=== PATIENT | female | born 1980 | race African-American/Black ===

== ENCOUNTER 2017-06-16 22:09 | Emergency (ER) | payer OTHER ==
[2017-06-16] MEDS ORDERED: Dexamethasone 10 MG/ML VIAL ONE (23:00)
== END 2017-06-16 23:25 | disposition home or self-care (01) ==
LOC: ERS 22:09
DX: J45.901 Unspecified asthma with (acute) exacerbation (principal); Z79.899 Other long term (current) drug therapy
CPT/HCPCS: 96372; J1100

== ENCOUNTER 2017-08-25 22:14 | Emergency (ER) | payer OTHER ==
[2017-08-25] MEDS ORDERED: methylPREDNISolone Sod Succ/PF 125 MG/2 ML VIAL ONE (23:01)
[2017-08-25] MEDS ORDERED: Magnesium Sulfate 2 GM/100 ML BAG ONE (23:01)
[2017-08-25] MEDS ORDERED: Sterile Water 10 ML ONE (23:02)
[2017-08-25 23:08] LABS: #Eosinphils 0.1 thou/uL (0.0-0.7); #Lymphocytes 1.1 thou/uL (1.20-3.40); #Monocytes 0.2 thou/uL (0.11-0.59); #Neutrophils 10.6 thou/uL (1.40-6.50); %Basophils 0.3 % (0.0-1.0); %Eosinophils 1.2 % (0.0-10.0); %Monocytes 1.8 % (0.0-10.0); Hematocrit 41.9 % (36.0-47.0); Mean Platelet Volume 7.9 fL (7.4-10.4); Red Blood Cell (RBC) Count 4.66 mill/uL (4.20-5.40); White Blood Cell (WBC) Count 12.1 thou/uL (4.8-10.8)
--- NOTE | 2017-08-25 23:20 | RAD ---
PORTABLE CHEST 08/25/17 PROVIDED CLINICAL HISTORY: Asthma exacerbation. FINDINGS: Comparison 10/11/16. The cardiac and mediastinal silhouette is within normal limits. Lungs appear clear. No pleural fluid or pneumothorax is evident. IMPRESSION: No evidence for an acute cardiopulmonary process. POS: [facility]
[2017-08-25 23:40] LABS: Anion Gap 16 mmol/L (10-20); BUN (Urea Nitrogen) 9 mg/dL (7.0-18.7); Calc. Creatinine Clearance 0 mL/min (70-130); Carbon Dioxide 23 mmol/L (22-29); Chloride 105 mmol/L (98-107); Estimated GFR-MDRD 81
== END 2017-08-26 02:18 | disposition home or self-care (01) ==
LOC: ERS 22:14
DX: J45.901 Unspecified asthma with (acute) exacerbation (principal)
CPT/HCPCS: 71010; 80048; 85025; 94640; 94660; 96365; 96366; 96375; A4216; J2930; J3475; J7620

== ENCOUNTER 2017-11-09 09:40 | Outpatient (CLI) | payer OTHER ==
--- NOTE | 2017-11-09 11:47 | RAD ---
PA AND LATERAL CHEST: History: Dyspnea. Comparison: 08-25-17 FINDINGS: Heart size and mediastinum are within normal limits. The lungs are clear of infiltrates. There are no significant bony findings. IMPRESSION: No active intrathoracic disease. Stable exam. POS: [facility]
== END 2017-11-09 09:41 | disposition home or self-care (01) ==
LOC: RAD 09:40
PROVIDERS: ATTEND Internal Medicine
DX: R06.00 Dyspnea, unspecified (principal)
CPT/HCPCS: 71046

== ENCOUNTER 2017-12-07 04:54 | Emergency (ER) | payer OTHER ==
[2017-12-07] MEDS ORDERED: Albuterol Sulfate 2.5 mg/3 ml Neb ONE (05:07)
[2017-12-07] MEDS ORDERED: Dexamethasone 10 MG/ML VIAL ONE (05:17)
[2017-12-07 05:18] LABS: pH, Arterial 7.45 (7.35-7.45)
[2017-12-07 05:19] LABS: Actual Bicarbonate (HCO3a) 23.9 mEq/L (22-26); Base Excess (BEa) 0.4 mEq/L (0 (+/-) 2.5); CO2 Tension 35.3 mmHg (35.0-45.0); Hemoglobin (Hb) 13.3 g/dL (12.0-16.0); O2 Tension (PaO2) 98.5 mmHg (80.0-100.0)
[2017-12-07 05:20] LABS: ALV-art Gradient 55.615 (0-20); Analyzer IN Cardio ER; Calcium, Ionized 1.2 mmol/L (1.12-1.30); Puncture Site RRA
[2017-12-07] MEDS ORDERED: Magnesium 2 GM/NS 0.9% 100 ML 2 GM in Premix Bag 1 BAG IVPB SCH (05:30)
[2017-12-07 05:37] LABS: #Eosinphils 1.1 thou/uL (0.0-0.7); #Lymphocytes 3.2 thou/uL (1.20-3.40); #Neutrophils 10.2 thou/uL (1.40-6.50); %Eosinophils 7.3 % (0.0-10.0); %Lymphocytes 20.3 % (21.0-51.0); %Monocytes 6.6 % (0.0-10.0); %Neutrophils 65.8 % (42.0-75.0); Hemoglobin 13.3 g/dL (12.0-16.0); Mean Corpuscular HGB CONC 32.2 g/dL (32.0-36.0); Mean Corpuscular Hemoglobin 28.5 pg (27.0-31.0); Mean Corpuscular Volume 88.4 fl (81.0-99.0); Mean Platelet Volume 7.4 fL (7.4-10.4); Platelet Count 263 thou/uL (130-400); RBC Distribution Width 13.7 % (11.5-14.5); Red Blood Cell (RBC) Count 4.66 mill/uL (4.20-5.40); White Blood Cell (WBC) Count 15.5 thou/uL (4.8-10.8)
[2017-12-07 05:47] LABS: Anion Gap 10 mmol/L (10-20); BUN (Urea Nitrogen) 10 mg/dL (7.0-18.7); Calc. Creatinine Clearance 0 mL/min (70-130); Calcium 8.9 mg/dL (7.8-10.44); Carbon Dioxide 28 mmol/L (22-29); Chloride 106 mmol/L (98-107); Estimated GFR-MDRD 81; Glucose 88 mg/dL (70-105); Potassium 3.7 mmol/L (3.5-5.1); Sodium 140 mmol/L (136-145)
--- NOTE | 2017-12-07 08:04 | RAD ---
CHEST ONE VIEW: Comparison: 08-25-17, 11-09-17 History: Asthma. FINDINGS: Normal cardiac silhouette. Lungs and pleural spaces are clear. No pneumothorax. No acute osseous abno rmalities. Posterior old right 5th rib fracture is noted. IMPRESSION: No acute process. POS: [facility]
--- NOTE | 2018-01-06 14:58 | EKG ---
Test Reason : SOB Blood Pressure : / mmHG Vent. Rate : 082 BPM Atrial Rate : 082 BPM P-R Int : 160 ms QRS Dur : 076 ms QT Int : 374 ms P-R-T Axes : 055 -13 029 degrees QTc Int : 436 ms Normal sinus rhythm Normal ECG Confirmed by ANSON REDMAN, MEKA ([id number]), editor greeting card WALESKA WILCOX ([id number]) on 01/06/2018 2:57:33 PM Referred By: ANTONY GRIGGS Confirmed By:MEAK GRIGGS MD
== END 2017-12-07 07:12 | disposition home or self-care (01) ==
LOC: ERS 04:54
DX: J45.901 Unspecified asthma with (acute) exacerbation (principal); Z79.899 Other long term (current) drug therapy
CPT/HCPCS: 36415; 71045; 80048; 82805; 85025; 93005; 94760; 96361; 96365; 96375; J1100; J3475; J7611; J7620

== ENCOUNTER 2018-01-24 00:54 | Emergency (ER) | payer OTHER | END 2018-01-24 01:48 | disposition left against medical advice (07) | LOC: ERS 00:54 | DX: Z53.21 Procedure and treatment not carried out due to patient leaving prior to being seen by health care provider (principal) | CPT/HCPCS: J7620 ==

== ENCOUNTER 2018-04-06 02:55 | Emergency (ER) | payer OTHER ==
[2018-04-06 04:31] LABS: #Lymphocytes 2.9 thou/uL (1.20-3.40); #Monocytes 0.6 thou/uL (0.11-0.59); #Neutrophils 7.6 thou/uL (1.40-6.50); %Basophils 0.2 % (0.0-1.0); %Eosinophils 0.1 % (0.0-10.0); %Lymphocytes 26.1 % (21.0-51.0); %Monocytes 5.1 % (0.0-10.0); %Neutrophils 68.6 % (42.0-75.0); Hemoglobin 13.8 g/dL (12.0-16.0); Mean Corpuscular HGB CONC 31.9 g/dL (32.0-36.0); Mean Corpuscular Hemoglobin 28.6 pg (27.0-31.0); Mean Corpuscular Volume 89.7 fL (78.0-98.0); Mean Platelet Volume 7.7 fL (7.4-10.4); Platelet Count 269 thou/uL (130-400); RBC Distribution Width 13.6 % (11.5-14.5); Red Blood Cell (RBC) Count 4.81 mill/uL (4.20-5.40); White Blood Cell (WBC) Count 11.1 thou/uL (4.8-10.8)
[2018-04-06 04:35] LABS: BHCG - Serum Negative (NEGATIVE); Pregs Control Background? CLEAR/WHITE (CLR/WHITE); Pregs Control Bar Appear? YES (CONTROL BAR)
[2018-04-06 04:49] LABS: ALT (SGPT) 18 U/L (8-55); AST (SGOT) 13 U/L (5-34); Albumin 3.7 g/dL (3.5-5.0); Alkaline Phosphatase 118 U/L (40-150); Anion Gap 12 mmol/L (10-20); BUN (Urea Nitrogen) 8 mg/dL (7.0-18.7); Bilirubin, Total 0.3 mg/dL (0.2-1.2); Calc. Creatinine Clearance 0 mL/min (70-130); Calcium 9.2 mg/dL (7.8-10.44); Carbon Dioxide 29 mmol/L (22-29); Chloride 101 mmol/L (98-107); Estimated GFR-MDRD 89; Globulin 2.9 g/dL (2.4-3.5); Glucose 98 mg/dL (70-105); Potassium 3.3 mmol/L (3.5-5.1); Protein, Total 6.6 g/dL (6.0-8.3); Sodium 139 mmol/L (136-145)
[2018-04-06] MEDS ORDERED: Ketorolac Tromethamine 60 MG/2 ML VIAL ONE (05:48)
[2018-04-06] MEDS ORDERED: predniSONE 20 MG TAB ONE (06:39)
--- NOTE | 2018-04-06 08:38 | RAD ---
CHEST TWO VIEWS: 04/06/2018 PROVIDED CLINICAL HISTORY: Cough. COMPARISON: 12/07/2017 FINDINGS: The cardiac and mediastinal silhouette are within normal limits. The lungs appear clear. There is n o pleural fluid or pneumothorax apparent. IMPRESSION: No evidence for an acute cardiopulmonary process. POS: [facility]
== END 2018-04-06 06:45 | disposition home or self-care (01) ==
LOC: ERS 02:55
DX: J20.9 Acute bronchitis, unspecified (principal); R10.9 Unspecified abdominal pain; J45.909 Unspecified asthma, uncomplicated; Z79.899 Other long term (current) drug therapy
CPT/HCPCS: 36415; 71046; 80053; 84703; 85025; 96372; J1885; J7506; J7620

== ENCOUNTER 2018-04-30 19:07 | Emergency (ER) | payer OTHER ==
--- NOTE | 2018-04-30 22:54 | RAD ---
PA AND LATERAL CHEST X-RAY: 04/30/2018 HISTORY: Cough for greater than one month. COMPARISON: 04/06/2018 FINDINGS: The cardiac silhouette and pulmonary vasculature are within normal limits. The lungs remain clear. There has been no interval change from the prior study. IMPRESSION: No acute cardiopulmonary process. POS: [facility]
== END 2018-04-30 22:45 | disposition home or self-care (01) ==
LOC: ERS 19:07
DX: J45.909 Unspecified asthma, uncomplicated (principal); J06.9 Acute upper respiratory infection, unspecified; Z79.899 Other long term (current) drug therapy
CPT/HCPCS: 71046

== ENCOUNTER 2018-05-15 20:26 | Inpatient (IN) | payer OTHER ==
[2018-05-15] MEDS ORDERED: Albuterol Sulfate 2.5 mg/3 ml Neb ONE (20:38)
[2018-05-15] MEDS ORDERED: Albuterol Sulfate 2.5 mg/0.5 ml Neb ONE (20:39)
--- NOTE | 2018-05-15 21:07 | RAD ---
SINGLE VIEW CHEST: HISTORY: Asthma. Shortness of breath. COMPARISON: 12/07/2017 FINDINGS: Single view of the chest show normal sized cardiomediastinal silhouette. There is no evidence of cons olidation, mass, or pleural effusion. The bones are unremarkable. IMPRESSION: No evidence of acute cardiopulmonary disease. POS: [facility]
[2018-05-15 21:11] LABS: #Basophils 0.1 thou/uL (0.0-0.2); #Lymphocytes 5.4 thou/uL (1.20-3.40); #Monocytes 0.6 thou/uL (0.11-0.59); #Neutrophils 10.7 thou/uL (1.40-6.50); %Basophils 0.5 % (0.0-1.0); %Eosinophils 0.1 % (0.0-10.0); %Lymphocytes 32.3 % (21.0-51.0); %Monocytes 3.6 % (0.0-10.0); %Neutrophils 63.5 % (42.0-75.0); Hemoglobin 13.9 g/dL (12.0-16.0); Mean Corpuscular HGB CONC 32.8 g/dL (32.0-36.0); Mean Corpuscular Hemoglobin 29.1 pg (27.0-31.0); Mean Corpuscular Volume 88.8 fL (78.0-98.0); Platelet Count 290 thou/uL (130-400); RBC Distribution Width 13.2 % (11.5-14.5); Red Blood Cell (RBC) Count 4.78 mill/uL (4.20-5.40); White Blood Cell (WBC) Count 16.8 thou/uL (4.8-10.8)
[2018-05-15 21:20] LABS: BHCG - Serum Negative (NEGATIVE); Pregs Control Background? CLEAR/WHITE (CLR/WHITE); Pregs Control Bar Appear? YES (CONTROL BAR)
[2018-05-15 21:32] LABS: ALT (SGPT) 15 U/L (8-55); AST (SGOT) 15 U/L (5-34); Albumin 3.7 g/dL (3.5-5.0); Alkaline Phosphatase 109 U/L (40-150); Anion Gap 13 mmol/L (10-20); BUN (Urea Nitrogen) 12 mg/dL (7.0-18.7); Bilirubin, Total 0.3 mg/dL (0.2-1.2); Calc. Creatinine Clearance 0 mL/min (70-130); Calcium 9.7 mg/dL (7.8-10.44); Carbon Dioxide 23 mmol/L (22-29); Chloride 105 mmol/L (98-107); Estimated GFR-MDRD 81; Globulin 3.2 g/dL (2.4-3.5); Glucose 130 mg/dL (70-105); Magnesium 2.9 mg/dL (1.6-2.6); Potassium 3.4 mmol/L (3.5-5.1); Protein, Total 6.9 g/dL (6.0-8.3); Sodium 138 mmol/L (136-145)
--- NOTE | 2018-05-15 23:34 | PDOC.FPRHP ---
- History of Present Illness Chief Complaint: Cough History of Present Illness: Ms. Holman presents for cough, SOB, wheezing. She reports a productive cough for the past 2 months. She has not increased use of home asthma medications. Today she did her breathing treatments which didn't work so she called EMS. Received 3 duonebs, 2g magnesium, epi, and 125 solumedrol in EMS. Denies fever/chills. Reports chest tightness, wheezing. She is feeling better. Sindhu has history of requiring intubation twice in past for asthma exacerbations. She was seen in clinic today for "seizures", desiring a referral. She says that when she starts coughing, she starts "shaking" which lasts 5-10 min and has been occurring 1-2x per day for the past month. Shaking will spontaneously resolve. No incontinence or post ictal state. - Allergies/Adverse Reactions Allergies Allergy/AdvReac Type Severity Reaction Status Date / Time adhesive Allergy Verified 05/16/18 00:44 guaifenesin [From Robitussin] Allergy Rash Verified 05/16/18 00:44 - Home Medications Medication Instructions Recorded Confirmed Type Montelukast Sodium [Singulair] 10 mg PO BID 01/21/16 05/16/18 History ALButerol Sulfate [Ventolin Neb] 3 ml NEB Q4HR PRN 30 Days 07/15/16 05/16/18 Rx Budesonide-Formoterol [Symbicort 2 puff INH BID-RT #1 aer 07/15/16 10/11/16 Rx 160-4.5] Albuterol Sulfate [Proair HFA] 2 puff INH BID PRN 07/23/16 05/16/18 History Ipratropium/Albuterol Sulfate 3 ml NEB [id number] PRN 07/23/16 05/16/18 History [DuoNeb] - History PMHx:eosinophilic asthma PSHx: Tubal ligation, sinus surgery FHx: HTN, arthritis, mother-asthma Social: Lives with 2 kids, ages 11 & 14. Does not work. Denies tobacco, alcohol , drug use. - Review of Systems General: denies: fever/chills, weight/appetite/sleep changes Eyes: denies: eye pain, vision changes ENT: reports: nasal congestion, rhinorrhea Respiratory: reports: cough, shortness of breath, other (wheezing, chest tightness) Cardiovascular: denies: chest pain, palpitation Gastrointestinal: denies: nausea, vomiting, diarrhea, constipation, abdominal pain Genitourinary: denies: incontinence, dysuria Skin: denies: rashes, lesions Musculoskeletal: denies: pain, swelling Neurological: reports: seizure. denies: syncope Psychological: denies: anxiety, depression - Vital signs BP: 146/76 HR: 100 RR: 20 Tmax: afebrile Pox: 100%% on bipap 50% - Physical Exam -Constitutional: sitting up in bed comfortably on bipap HEENT: normocephalic and atraumatic, PERRLA, EOMI, grossly normal vision, grossly normal hearing, normal nasal mucosa, MMM, oropharynx clear Neck: supple, trachea midline Heart: normal S1/S2, other (tachycardia) Lungs: other (diffuse wheezing) Abdomen: soft, non-tender, bowel sounds present Musculoskeletal: normal structure, ROM grossly normal Neurological: CN II-XII intact Skin: no rash/lesions, good turgor, capillary refill <2 seconds Heme/Lymphatic: no unusual bruising or bleeding, no LAD Psychiatric: normal mood and affect FMR H&P: Results - Labs Result Diagrams: 05/16/18 05:09 05/16/18 05:09 Lab results: WBC 16.8 thou/uL (4.8-10.8) H 05/15/18 20:58 Hgb 13.9 g/dL (12.0-16.0) 05/15/18 20:58 Hct 42.4 % (36.0-47.0) 05/15/18 20:58 MCV 88.8 fL (78.0-98.0) 05/15/18 20:58 Plt Count 290 thou/uL (130-400) 05/15/18 20:58 Neutrophils % 63.5 % (42.0-75.0) 05/15/18 20:58 Sodium 138 mmol/L (136-145) 05/15/18 20:58 Potassium 3.4 mmol/L (3.5-5.1) L 05/15/18 20:58 Chloride 105 mmol/L (98-107) 05/15/18 20:58 Carbon Dioxide 23 mmol/L (22-29) 05/15/18 20:58 BUN 12 mg/dL (7.0-18.7) 05/15/18 20:58 Creatinine 0.94 mg/dL (0.6-1.1) 05/15/18 20:58 Glucose 130 mg/dL (70-105) H 05/15/18 20:58 Calcium 9.7 mg/dL (7.8-10.44) 05/15/18 20:58 Total Bilirubin 0.3 mg/dL (0.2-1.2) 05/15/18 20:58 AST 15 U/L (5-34) 05/15/18 20:58 ALT 15 U/L (8-55) 05/15/18 20:58 Alkaline Phosphatase 109 U/L (40-150) 05/15/18 20:58 Serum Total Protein 6.9 g/dL (6.0-8.3) 05/15/18 20:58 Albumin 3.7 g/dL (3.5-5.0) 05/15/18 20:58 FMR H&P: A/P - Problem List (1) Acute respiratory failure Current Visit: No Status: Acute Code(s): J96.00 - ACUTE RESPIRATORY FAILURE , UNSP W HYPOXIA OR HYPERCAPNIA (2) Asthma exacerbation Current Visit: No Status: Acute Code(s): J45.901 - UNSPECIFIED ASTHMA WITH ( ACUTE) EXACERBATION (3) Hypokalemia Current Visit: No Status: Acute Code(s): E87.6 - HYPOKALEMIA (4) Leucocytosis Current Visit: No Status: Acute Code(s): D72.829 - ELEVATED WHITE BLOOD CELL COUNT, UNSPECIFIED Comment: likley due to steroid use - Plan 38 year old female with PMH of asthma presents with CC of SOB, found to be in acute hypoxic respiratory failure 2/2 asthma exacerbation Acute hypoxic respiratory failure 2/2 asthma exacerbation - pt has history of eosinophilic asthma, has been intubated twice for exacerbations - managed with daily dulera, singulair, duonebs as well as monthly allergy shots - has received solumedrol 125mg, epinephrine, 2 g magnesium, duonebs prior to admission - CXR showed no acute cardiopulmonary process - Prednisone 60mg qd - satting well with bipap with not current concern for worsening respiratory status. wean as tolerated to keep sats 93-95% - duonebs ben q2h - monitor respiratory status Leukocytosis - WBC 16.8 - steroid use and stress reaction likely contributory - monitor CBC Hypokalemia - K+ 3.4 on admission - patient has received albuterol - will not replace at this time - monitor am labs Diet: regular Ppx: SCDs Dispo: admit to IMCU FMR H&P: Upper Level - Pertinent history 38F with history of severe eosinophilic asthma who has been intubated twice previously p/w SOB. She is currently undergoing monoclonal antibody injections ( Fasenra) qmonthly for her asthma. She was evaluated at [facility] clinic today for possible seizure activity. No respiratory distress at that time. She then developed wheezing and SOB at home. No response to nebulizer so she called EMS. She received Duonebs x 3, 0.3mg of Epi, 125mg of Solumedrol, and 2G of magnesium in route. She was put on CPAP in ER and has slowly improved since that time. - Pertinent findings Vitals: 136/88 mmHg 111 bpm 23 breaths/m 100% on CPAP Gen: A&Ox3 CV: elevated rate; regular rhythym Pulm: diffuse expiratory wheezes; minimal air movement in all lung beltran Extremities: no lower extremity edema Skin: no rashes or lesions WBC: 16.8 K: 3.4 CXR: no acute cardiopulmonary process - Plan Date/Time: 05/15/18 0090 1. Acute hypoxic respiratory failure 2/2 asthma exacerbation -improved with medications in route; stable on CPAP; answering in full sentences ; no respiratory distress at time of my evaluation -Duonebs q2h with oral prednisone 60mg daily -continue CPAP overnight and attempt to wean in the morning -no clear trigger for her exacerbation 2. Hypermagnesemia -2/2 to medications given en route -monitor and treat accordingly I, Aguilar Pizano, have evaluated this patient and agree with findings/plan as outlined by trestle mainternance laborer resident. Pertinent changes/additions are listed here. Attending Addendum - Attending Addendum Date/Time: 05/15/18 5440 I personally evaluated the patient and discussed the management with Dr. Coreas and Dr. Pizano I agree with the History, Examination, Assessment and Plan documented above with any addition or exceptions noted below. 38 yo female with hx of hypereosinophilic severe asthma presents for acute exacerbation. s/p steroids and magnesium. Currently on BiPAP with improved symptoms. Will continue for now. Schedule breathing treatments q1 to 2 hours. Space as tolerated. Unsure trigger at this time. Possible allergies vs URI. Continue all allergy meds. Hold antibx at this time. Elian
[2018-05-15] MEDS ORDERED: Ondansetron ODT 4 MG TAB PO PRN (23:35)
[2018-05-15 23:42] VITALS: BMI 34.2
[2018-05-16 05:42] LABS: #Lymphocytes 0.7 thou/uL (1.20-3.40); #Neutrophils 11.3 thou/uL (1.40-6.50); %Eosinophils 0.1 % (0.0-10.0); %Lymphocytes 5.8 % (21.0-51.0); %Monocytes 0.3 % (0.0-10.0); %Neutrophils 93.7 % (42.0-75.0); Hemoglobin 13.1 g/dL (12.0-16.0); Mean Corpuscular HGB CONC 32.2 g/dL (32.0-36.0); Mean Corpuscular Hemoglobin 28.9 pg (27.0-31.0); Mean Corpuscular Volume 89.7 fL (78.0-98.0); Mean Platelet Volume 8.2 fL (7.4-10.4); Platelet Count 268 thou/uL (130-400); RBC Distribution Width 13.2 % (11.5-14.5); Red Blood Cell (RBC) Count 4.53 mill/uL (4.20-5.40)
[2018-05-16 05:53] LABS: Anion Gap 12 mmol/L (10-20); BUN (Urea Nitrogen) 11 mg/dL (7.0-18.7); Calc. Creatinine Clearance 111 mL/min (70-130); Carbon Dioxide 23 mmol/L (22-29); Chloride 108 mmol/L (98-107); Estimated GFR-MDRD 83; Glucose 207 mg/dL (70-105); Potassium 3.9 mmol/L (3.5-5.1); Sodium 139 mmol/L (136-145)
[2018-05-16] MEDS ORDERED: Benzonatate 100 MG CAP PO PRN (10:31)
[2018-05-16] MEDS: predniSONE 20 MG TAB PO SCH (10:33)
[2018-05-16] MEDS: Acetaminophen 325 MG TAB PO PRN ×2 (10:33→22:32)
[2018-05-16] MEDS: Montelukast Sodium 10 mg Tablet PO SCH ×2 (12:55→21:14)
[2018-05-16] MEDS ORDERED: Ketorolac Tromethamine 30 MG/ML VIAL IVP SCH (15:15)
[2018-05-16] MEDS ORDERED: Mometasone/Formoterol 120 PUFF INHALER INH SCH (18:30)
--- NOTE | 2018-05-16 18:31 | CON ---
DATE OF CONSULTATION: 05/16/2018 Ms. Holman is a 38-year-old female with a history of asthma, she says since she was a child. She actually says she has been intubated twice in the past. Certainly had multiple ER visits here. It looks like she has 10 to 12 a year going back to 2013. She presented with a typical asthma exacerbation, says she is much better. She was actually in the emergency room on 05/01, with a complaint of a cough. She did not leave me with the impression that she sees doctors in offices frequently. PAST MEDICAL HISTORY: Remarkable for seen by Dr. Dorman in October for asthma. His notes state that she has suspected vocal cord dysfunction as well. He noted that as soon as she was intubated, there was no prolonged expiratory phase or obstructive pattern on her ventilator profile. Past medical history remarkable for possible sleep apnea. History of a tubal ligation and sinus surgery in the past. SOCIAL HISTORY: She is nonsmoker, nondrinker. FAMILY HISTORY: Negative for lung disease in early age. REVIEW OF SYSTEMS: 10 point review of systems completed; otherwise negative. She denies fever, chills, sweats, purulent sputum. She did report a cough prior to admission. PHYSICAL EXAMINATION: GENERAL: She is in no distress. VITAL SIGNS: She is afebrile, heart rate is 98, respiratory rate is 14, oximetry is 100% on room air, blood pressure 122/74. HEENT: Pupils are equal. Sclerae is anicteric. NECK: Supple, no lymphadenopathy. LUNGS: Completely clear. HEART: Regular rhythm. S1 and S2 are normal. ABDOMEN: Soft and nontender. EXTREMITIES: Without clubbing, cyanosis or edema. IMPRESSION: Asthma versus vocal cord dysfunction/conversion disorder. She is clinically stable. She can move out of the Intermediate Care Unit. This is a 50 minute consult, with greater than 50% of the time spent in unit on coordination of care. KURTIS
[2018-05-16] MEDS: Fluticasone Propionate HFA 220 MCG AER INH SCH (18:47)
[2018-05-17 05:31] LABS: #Lymphocytes 1.9 thou/uL (1.20-3.40); #Neutrophils 11.6 thou/uL (1.40-6.50); %Basophils 0.1 % (0.0-1.0); %Eosinophils 0.1 % (0.0-10.0); %Lymphocytes 13.3 % (21.0-51.0); %Monocytes 6.9 % (0.0-10.0); %Neutrophils 79.7 % (42.0-75.0); Mean Corpuscular Hemoglobin 29.5 pg (27.0-31.0); Mean Corpuscular Volume 89.1 fL (78.0-98.0); Mean Platelet Volume 7.8 fL (7.4-10.4); Platelet Count 243 thou/uL (130-400); RBC Distribution Width 13.4 % (11.5-14.5); Red Blood Cell (RBC) Count 4.07 mill/uL (4.20-5.40); White Blood Cell (WBC) Count 14.5 thou/uL (4.8-10.8)
[2018-05-17 05:49] LABS: Anion Gap 12 mmol/L (10-20); BUN (Urea Nitrogen) 10 mg/dL (7.0-18.7); Calc. Creatinine Clearance 140 mL/min (70-130); Calcium 8.7 mg/dL (7.8-10.44); Carbon Dioxide 21 mmol/L (22-29); Chloride 111 mmol/L (98-107); Estimated GFR-MDRD Greater than 90; Glucose 104 mg/dL (70-105); Potassium 3.2 mmol/L (3.5-5.1); Sodium 141 mmol/L (136-145)
[2018-05-17] MEDS: Fluticasone Propionate HFA 220 MCG AER INH SCH (08:00)
--- NOTE | 2018-05-17 08:13 | PDOC.FM ---
- Subjective Subjective: Pt reports feeling better. Wondering about going home. Says cough is still about the same and hasn't had improvement. Denies any SOB. Denies any fever or chills. Denies any acute events overnight. - Objective MAR Reviewed: Yes Vital Signs & Weight: Vital Signs (12 hours) Temp Pulse Resp BP Pulse Ox 05/17/18 08:05 86 16 98 05/17/18 07:49 98.4 F 75 18 98 05/17/18 03:00 98.4 F 75 18 137/85 100 05/16/18 22:00 98.3 F 90 18 138/82 100 05/16/18 21:27 96 16 100 Weight Weight 84.867 kg I&O: 05/16/18 05/17/18 05/18/18 06:59 06:59 06:59 Intake Total 500 1220 Output Total 450 650 Balance 50 570 Result Diagrams: 05/17/18 05:07 05/17/18 05:07 Radiology Reviewed by me: Yes (No acute cardiopulm process) <Sukhjinder Pettit - Last Filed: 05/17/18 08:11> - Objective Vital Signs & Weight: Vital Signs (12 hours) Temp Pulse Resp BP Pulse Ox 05/17/18 08:57 98.0 F 82 20 100/57 L 99 05/17/18 08:05 86 16 98 05/17/18 07:49 98.4 F 75 18 98 05/17/18 03:00 98.4 F 75 18 137/85 100 Weight Weight 84.867 kg I&O: 05/16/18 05/17/18 05/18/18 06:59 06:59 06:59 Intake Total 500 1220 Output Total 450 650 Balance 50 570 Result Diagrams: 05/17/18 05:07 05/17/18 05:07 <Dara Jacobsen - Last Filed: 05/17/18 11:03> Phys Exam - Physical Examination Constitutional: NAD HEENT: PERRLA, moist MMs possible canida infection on tongue Neck: no nodes, supple, full ROM Mild wheezing noted in upper lobes. Lung sounds improved from yesterday Some mild rales noted Cardiovascular: RRR, no significant murmur, no rub Gastrointestinal: soft, non-tender, no distention, positive bowel sounds Musculoskeletal: pulses present Neurological: non-focal, moves all 4 limbs Psychiatric: normal affect, A&O x 3 Skin: no rash, normal turgor, cap refill <2 seconds <Sukhjinder Pettit - Last Filed: 05/17/18 08:11> Dx/Plan (1) Acute respiratory failure Code(s): J96.00 - ACUTE RESPIRATORY FAILURE, UNSP W HYPOXIA OR HYPERCAPNIA Status: Resolved (2) Asthma exacerbation Code(s): J45.901 - UNSPECIFIED ASTHMA WITH (ACUTE) EXACERBATION Status: Acute Qualifiers: Asthma severity: severe Asthma persistence: persistent Qualified Code(s) : J45.51 - Severe persistent asthma with (acute) exacerbation (3) Hypokalemia Code(s): E87.6 - HYPOKALEMIA Status: Acute (4) Leucocytosis Code(s): D72.829 - ELEVATED WHITE BLOOD CELL COUNT, UNSPECIFIED Status: Acute (5) Oral candidiasis Code(s): B37.0 - CANDIDAL STOMATITIS Status: Acute - Plan Plan: Acute hypoxic respiratory failure(Resolved) 2/2 asthma exacerbation - pt has history of eosinophilic asthma, has been intubated twice for exacerbations - managed with daily dulera, singulair, duonebs as well as monthly allergy shots - recieved solumedrol 125mg, epinephrine, 2 g magnesium, duonebs prior to admission. Was placed on BIPAP and by morning after admission was satting 100% on RA - CXR showed no acute cardiopulmonary process - Prednisone 60mg qd, will give burst for 5 days. Day 2. - duonebs ben q4h - Pt doing much better. Satting 100% on RA. Lung sounds much improved and air movement better. Possibly home today. -Started on home steroid inhaler. Continued singulair. Also started claritin allergy pill -Still having chronic cough- Tessalon and Dextromorphan at this time. May need further follow up outpatient Leukocytosis - WBC 16.8-->14. - steroid use and stress reaction likely contributory - monitor CBC Hypokalemia - K+ 3.2 today. Will replace and trend. - patient has received albuterol - monitor am labs <Sukhjinder Pettit - Last Filed: 05/17/18 08:11> Attending Addendum - Attending Addendum Date/Time: 05/17/18 1102 I personally evaluated the patient and discussed the management with Dr. Pettit I agree with the History, Examination, Assessment and Plan documented above with any addition or exceptions noted below- Patient sleeping comfortable. Still has cough but SOB improved. Afebrile VSS. A/P: 1) Asthma exacerbation- improved; d/c home today with po steroids, inhalers. <Dara Jacobsen - Last Filed: 05/17/18 11:03>
[2018-05-17] MEDS ORDERED: Potassium Chloride 20 MEQ TAB PO SCH (08:15)
[2018-05-17 08:59] VITALS: BP 100/57; TEMP 98
[2018-05-17] MEDS ORDERED: Loratadine 10 MG TAB PO SCH (09:00)
[2018-05-17] MEDS ORDERED: Nystatin 500,000 UNITS/5 ML UDCUP SSW SCH (09:00)
[2018-05-17] MEDS: predniSONE 20 MG TAB PO SCH (09:10)
[2018-05-17] MEDS: Montelukast Sodium 10 mg Tablet PO SCH (09:10)
[2018-05-17] MEDS ORDERED: Dextromethorphan Polistirex 30 MG/5 ML (89 ML BOTTLE) PO SCH (12:00)
[2018-05-17 12:54] LABS: Free T4 (Free Thyroxine) 0.64 ng/dL (0.70-1.48)
[2018-05-17] MEDS ORDERED: Mometasone 100 MCG HFA INHALER INH SCH (18:30)
== END 2018-05-17 12:39 | disposition home or self-care (01) | DRG 189 ==
LOC: ERS 20:26 → IMCU/EMU 21:28 → 3SE 05-16 22:05
PROVIDERS: ADMIT Student in an Organized Health Care Education/Training Program; ATTEND Student in an Organized Health Care Education/Training Program
DX: J96.01 Acute respiratory failure with hypoxia (principal); J45.51 Severe persistent asthma with (acute) exacerbation; B37.0 Candidal stomatitis; E83.41 Hypermagnesemia; E87.6 Hypokalemia
CPT/HCPCS: 36415; 71045; 80048; 80053; 83735; 84439; 84443; 84481; 84703; 85025; 93005; 94640; 94660; 94760; 96360; 96361; J1885; J7506; J7611; J7620

== ENCOUNTER 2018-07-03 06:01 | Emergency (ER) | payer OTHER ==
[2018-07-03] MEDS ORDERED: Albuterol Sulfate 2.5 mg/3 ml Neb ONE (06:34)
[2018-07-03] MEDS ORDERED: Albuterol Sulfate 2.5 mg/0.5 ml Neb ONE (06:34)
--- NOTE | 2018-07-03 07:47 | RAD ---
SINGLE VIEW CHEST: Date: 07/03/18 COMPARISON: 05/15/18. HISTORY: Asthma attack with shortness of breath. FINDINGS: Single view of the chest shows a normal sized cardiomediastinal silhouette. There is no evidence of c onsolidation, mass, or pleural effusion. The bones are unremarkable. IMPRESSION: No evidence of acute cardiopulmonary disease. POS: [facility]
[2018-07-03] MEDS ORDERED: HYDROcodone/Acetaminophen 5/325 mg Tablet ONE (08:40)
--- NOTE | 2018-07-08 21:28 | EKG ---
Test Reason : Blood Pressure : / mmHG Vent. Rate : 097 BPM Atrial Rate : 097 BPM P-R Int : 156 ms QRS Dur : 084 ms QT Int : 348 ms P-R-T Axes : 032 -08 037 degrees QTc Int : 441 ms Normal sinus rhythm Normal ECG Confirmed by JENNIFFER AVILA MD ([id number]), greeting card editor WALESKA WILCOX ([id number]) on 07/08/2018 9:27:59 PM Referred By: Confirmed By:JENNIFFER AVILA MD
== END 2018-07-03 09:34 | disposition home or self-care (01) ==
LOC: ERS 06:01
DX: J45.901 Unspecified asthma with (acute) exacerbation (principal); Z79.899 Other long term (current) drug therapy
CPT/HCPCS: 71045; 93005; 94644; 94760; J7611; J7620

== ENCOUNTER 2018-09-01 10:38 | Emergency (ER) | payer OTHER ==
[2018-09-01] MEDS ORDERED: Dexamethasone 10 MG/ML VIAL ONE (11:50)
--- NOTE | 2018-09-01 12:02 | RAD ---
CHEST TWO VIEWS: History: Difficulty breathing. Comparison: 07-03-18 FINDINGS: The lungs are clear. No pneumothorax or effusion. Cardiac silhouette and mediastinal contours are wit hin normal limits. There does appear to be some callus formation along the right 6th and 7th ribs, may be healing fractu res. IMPRESSION: 1. No acute intrathoracic abnormality. 2. Possible healing right lateral 6th and 7th right rib fractures. POS: [facility]
== END 2018-09-01 12:43 | disposition home or self-care (01) ==
LOC: ERS 10:38
DX: J45.901 Unspecified asthma with (acute) exacerbation (principal); Z77.098 Contact with and (suspected) exposure to other hazardous, chiefly nonmedicinal, chemicals; Z79.899 Other long term (current) drug therapy
CPT/HCPCS: 71046; 96372; J1100

== ENCOUNTER 2018-09-09 01:26 | Emergency (ER) | payer OTHER ==
[2018-09-09] MEDS ORDERED: Magnesium 2 GM/50 ML BAG (IN WATER) ONE (01:45)
[2018-09-09] MEDS ORDERED: Lorazepam 2 MG/ML VIAL ONE (01:45)
[2018-09-09] MEDS ORDERED: Ondansetron PF 4 MG/2 ML Vial ONE (01:45)
[2018-09-09] MEDS ORDERED: Albuterol Sulfate 2.5 mg/3 ml Neb ONE (02:19)
[2018-09-09 02:40] LABS: #Lymphocytes 1.9 thou/uL (1.20-3.40); #Monocytes 0.4 thou/uL (0.11-0.59); #Neutrophils 8.3 thou/uL (1.40-6.50); %Basophils 0.4 % (0.0-1.0); %Eosinophils 0.2 % (0.0-10.0); %Lymphocytes 17.6 % (21.0-51.0); %Monocytes 3.6 % (0.0-10.0); %Neutrophils 78.2 % (42.0-75.0); Hemoglobin 13.2 g/dL (12.0-16.0); Mean Corpuscular HGB CONC 32.2 g/dL (32.0-36.0); Mean Corpuscular Volume 89.8 fL (78.0-98.0); Mean Platelet Volume 8.2 fL (7.4-10.4); Platelet Count 233 thou/uL (130-400); RBC Distribution Width 13.2 % (11.5-14.5); Red Blood Cell (RBC) Count 4.56 mill/uL (4.20-5.40); White Blood Cell (WBC) Count 10.6 thou/uL (4.8-10.8)
[2018-09-09 03:01] LABS: ALT (SGPT) 12 U/L (8-55); AST (SGOT) 12 U/L (5-34); Albumin 3.2 g/dL (3.5-5.0); Alkaline Phosphatase 100 U/L (40-150); Anion Gap 12 mmol/L (10-20); BUN (Urea Nitrogen) 10 mg/dL (7.0-18.7); Bilirubin, Total 0.2 mg/dL (0.2-1.2); Calc. Creatinine Clearance 0 mL/min (70-130); Calcium 8.4 mg/dL (7.8-10.44); Carbon Dioxide 22 mmol/L (22-29); Chloride 110 mmol/L (98-107); Estimated GFR-MDRD Greater than 90; Globulin 2.8 g/dL (2.4-3.5); Glucose 139 mg/dL (70-105); Potassium 3.3 mmol/L (3.5-5.1); Sodium 141 mmol/L (136-145)
[2018-09-09 03:34] LABS: Bilirubin Negative (Negative); Blood, Urine Trace (Negative); Clarity CLEAR (Clear); Glucose, Urine (Dipstick) Negative (Negative); Leukocyte Small (Negative); Nitrite Negative (Negative); Protein, Urine (Dipstick) Negative (Neg-Trace); Specific Gravity, Urine 1.009 (1.002-1.036); Urobilinogen 0.2 mg/dL (0.2-1.0)
[2018-09-09 03:37] LABS: Bacteria/HPF 4+ HPF (None Seen); Hyaline Casts/LPF 0-3 HYALINE CAST LPF (0-3 Hyaline); RBC/HPF 0-3 HPF (0-3); Squamous Epithelial 0-3 HPF (0-3)
--- NOTE | 2018-09-09 07:53 | RAD ---
CHEST 1 VIEW: Date: 09/09/18 HISTORY: Shortness of breath. COMPARISON: Radiograph dated 07/03/18. FINDINGS: Lungs are clear. No pneumothorax or effusion. Cardiac silhouette and mediastinal contours within norm al limits. Old right posterior rib fractures. IMPRESSION: No acute intrathoracic abnormality. POS: [facility]
== END 2018-09-09 05:51 | disposition home or self-care (01) ==
LOC: ERS 01:26
DX: J45.901 Unspecified asthma with (acute) exacerbation (principal); Z79.51 Long term (current) use of inhaled steroids; Z79.899 Other long term (current) drug therapy
CPT/HCPCS: 36415; 71045; 80053; 81003; 81015; 85025; 87804; 94644; 96361; 96365; 96375; J2060; J2405; J7611; J7620

== ENCOUNTER 2018-09-24 21:37 | Emergency (ER) | payer OTHER ==
--- NOTE | 2018-09-24 23:01 | RAD ---
PORTABLE AP CHEST X-RAY: 09/24/2018 HISTORY: Chest pain and shortness of breath. COMPARISON: 09/19/2018 FINDINGS: The cardiac silhouette and pulmonary vasculature are within normal limits. The lungs remain clear. Remote right-sided rib fractures are present. There has been no interval change from the prior exam. IMPRESSION: No acute cardiopulmonary process. POS: [facility]
== END 2018-09-24 23:09 | disposition home or self-care (01) ==
LOC: ERS 21:37
DX: R06.02 Shortness of breath (principal); J45.909 Unspecified asthma, uncomplicated; Z79.899 Other long term (current) drug therapy; Z79.51 Long term (current) use of inhaled steroids
CPT/HCPCS: 71045

== ENCOUNTER 2018-09-30 22:49 | Inpatient (IN) | payer OTHER ==
[2018-09-30] MEDS ORDERED: Albuterol Sulfate 2.5 mg/3 ml Neb ONE (23:14)
[2018-09-30 23:15] LABS: #Basophils 0.1 thou/uL (0.0-0.2); #Lymphocytes 4.4 thou/uL (1.20-3.40); #Monocytes 0.9 thou/uL (0.11-0.59); #Neutrophils 13.8 thou/uL (1.40-6.50); %Basophils 0.4 % (0.0-1.0); %Eosinophils 0.1 % (0.0-10.0); %Lymphocytes 22.9 % (21.0-51.0); %Monocytes 4.7 % (0.0-10.0); %Neutrophils 71.9 % (42.0-75.0); Hemoglobin 14.2 g/dL (12.0-16.0); Mean Corpuscular HGB CONC 31.8 g/dL (32.0-36.0); Mean Corpuscular Hemoglobin 29.1 pg (27.0-31.0); Mean Corpuscular Volume 91.3 fL (78.0-98.0); Mean Platelet Volume 8.3 fL (7.4-10.4); Platelet Count 258 thou/uL (130-400); RBC Distribution Width 13.4 % (11.5-14.5); White Blood Cell (WBC) Count 19.1 thou/uL (4.8-10.8)
--- NOTE | 2018-09-30 23:15 | RAD ---
CHEST ONE VIEW: 09/30/18 HISTORY: Dyspnea. COMPARISON: 09/24/18. FINDINGS: The cardiac silhouette is unremarkable. Pulmonary vasculature is upper limits of normal with mild vinnie ateral perihilar infiltrates. Mediastinum is midline. No evidence of pneumothorax. Old healing right hip rib fractures. IMPRESSION: Central interstitial prominence could be related to mild pulmonary vascular congestion of thickening of the peribronchial structures as well reactive airway disease. No lobar consolidation is apparent. POS: [facility]
[2018-09-30] MEDS ORDERED: Terbutaline Sulfate 1 MG/ML VIAL ONE (23:29)
[2018-09-30 23:34] LABS: Anion Gap 14 mmol/L (10-20); BUN (Urea Nitrogen) 7 mg/dL (7.0-18.7); Calc. Creatinine Clearance 0 mL/min (70-130); Calcium 8.8 mg/dL (7.8-10.44); Carbon Dioxide 18 mmol/L (22-29); Chloride 109 mmol/L (98-107); Estimated GFR-MDRD 84; Glucose 161 mg/dL (70-105); Potassium 3.2 mmol/L (3.5-5.1); Sodium 138 mmol/L (136-145)
[2018-09-30 23:54] LABS: Analyzer IN Cardio ER; Base Excess (BEa) -7.2 mEq/L (-2.0 to +3.0); CO2 Tension 31.3 mmHg (35.0-45.0); Calcium, Ionized 1.15 mmol/L (1.12-1.30); Carboxyhemoglobin (COHb) 0.4 gm% (0.0-3.0); Hemoglobin (Hb) 14.9 g/dL (12.0-16.0); O2 Tension (PaO2) 139.4 mmHg (80.0-100.0); pH, Arterial 7.35 (7.35-7.45)
[2018-09-30 23:56] LABS: ALV-art Gradient 106.675 (0-20); Puncture Site LRA
[2018-10-01] MEDS ORDERED: cefTRIAXone\\ROCEPHIN 1 GM VIAL ONE
[2018-10-01] MEDS ORDERED: Sodium Chloride 0.9% 100 ML ONE
[2018-10-01] MEDS ORDERED: Sodium Chloride 0.45% 1,000 ML IV SCH (01:45)
[2018-10-01] MEDS ORDERED: methylPREDNISolone Sod Succ/PF 125 MG/2 ML VIAL IVP SCH (02:00)
[2018-10-01 02:31] VITALS: BMI 31.6
[2018-10-01] MEDS ORDERED: Benzonatate 100 MG CAP PO PRN (02:38)
[2018-10-01] MEDS ORDERED: Cepastat Lozenges 1 LOZ PO PRN (02:39)
[2018-10-01] MEDS ORDERED: Potassium Chloride 20 MEQ TAB PO SCH ×2 (02:45→17:00)
[2018-10-01] MEDS ORDERED: levETIRAcetam 500 MG TAB PO SCH (02:45)
[2018-10-01] MEDS ORDERED: Senokot S 8.6-50 MG TAB PO PRN (07:01)
[2018-10-01] MEDS ORDERED: Calcium Carbonate 500 MG ChewTAB PO PRN (07:01)
[2018-10-01] MEDS ORDERED: PROVENTIL INHALER 6.7 G (200 INHALATIONS) INH PRN (07:01)
[2018-10-01] MEDS ORDERED: Ondansetron ODT 4 MG TAB PO PRN (07:01)
[2018-10-01] MEDS ORDERED: Ondansetron PF 4 MG/2 ML Vial IVP PRN (07:01)
[2018-10-01] MEDS ORDERED: cloNIDine 0.1 MG TAB PO PRN (08:26)
--- NOTE | 2018-10-01 08:58 | HP ---
PRIMARY CARE: [facility]. CHIEF COMPLAINT: Shortness of breath. HISTORY OF PRESENT ILLNESS: The patient is a 38-year-old female with moderate persistent asthma with frequent asthma exacerbation, presented to the emergency room with sudden onset of shortness of breath that started around 10:00 p.m. She tried using inhaler nebulizer treatments without much relief. She was breathing approximately 50 times a minute when EMS arrived. After continuous nebulizer treatments, respiration improved to 20 per minute. She has a history of intubation approximately 4 times in the past. She had significant chest tightness and wheezing. She also had cough which was essentially dry. No fevers, chills, sick contacts, or recent travel reported. No orthopnea, leg swelling, or paroxysmal nocturnal dyspnea reported. In the emergency room, her initial vital signs showed temperature 97.9, respiration of 36, pulse rate of 128 with a blood pressure of 154/106 with O2 saturation 98% on face mask. She received a nebulizer treatment along with IV fluids and ceftriaxone in the emergency room. PAST MEDICAL HISTORY: 1. Moderate persistent asthma with frequent exacerbation. 2. History of respiratory failure requiring intubation in the past. 3. Umbilical hernia. 4. Seizure disorder. PAST SURGICAL HISTORY: 1. Tubal ligation. 2. Sinus surgery. ALLERGIES: THE PATIENT IS ALLERGIC TO MUCINEX. CURRENT HOME MEDICATIONS: 1. Albuterol inhaler as needed. 2. Albuterol nebulizer treatment as needed. 3. Keppra 500 mg b.i.d. 4. Prednisone as needed. SOCIAL HISTORY: The patient currently lives at home. Denies current use of smoking. Denies any alcohol or drug use. FAMILY HISTORY: Negative for inheritable disease. REVIEW OF SYSTEMS: All other review of systems was reviewed and found negative. PHYSICAL EXAMINATION: VITAL SIGNS: As discussed above. GENERAL: A 38-year-old female in moderate respiratory distress. Currently receiving nebulizer treatment. HEENT: Head is atraumatic, normocephalic. Sclerae anicteric. Moist mucous membranes. No oral lesion. NECK: Supple. No JVD. No significant stridor. There were tracheal wheezes noted. HEART: S1 and S2 present. Tachycardic. No rubs or gallops. LUNGS: Showed diffuse expiratory wheezing with accessory muscle use. No rales or rhonchi noted. EXTREMITIES: No edema or calf tenderness. NEUROLOGY: Grossly nonfocal, moves all 4 extremities. PSYCHIATRY: Alert, awake, oriented x3. SKIN: Warm and dry. LYMPH NODES: No palpable lymph nodes in the neck. PERIPHERAL VASCULAR: Radial pulses palpable bilaterally. MUSCULOSKELETAL: No joint swelling or tenderness. LABORATORY FINDINGS: Potassium 3.2. WBC 19.1 with hemoglobin 14.2, hematocrit 44.7. ABG showed pH 7.35, pCO2 31.3, bicarbonate 17, on 40% FiO2. Chest x-ray by my review showed increased bronchopulmonary markings. No definite infiltrate noted. EKG by my review showed sinus tachycardia without significant ST-T wave changes. IMPRESSION: 1. Status asthmaticus. 2. Moderate persistent asthma. 3. Seizure disorder. 4. Obesity with a BMI of 31.7. 5. Hypokalemia. 6. Chronic leukocytosis. PLAN: The patient will be monitored closely on telemetry floor due to significant tachycardia. We will continue oxygen nebulizer treatment. We will add oral azithromycin. We will consult Pulmonary. The patient normally follows Dr. Dorman. We will resume selected home medications. Continue Keppra. Replace potassium. Plan of care was discussed with the patient in detail. She stated understanding. Job ID: [id number]
[2018-10-01] MEDS ORDERED: Montelukast Sodium 10 mg Tablet PO SCH ×2 (09:00→21:00)
[2018-10-01] MEDS: Enoxaparin Sodium 40 MG/0.4 ML SYRINGE SC SCH (09:17)
[2018-10-01] MEDS: Famotidine 20 MG TAB PO SCH ×2 (09:18→20:13)
[2018-10-01] MEDS: Azithromycin 250 MG TAB PO SCH (09:18)
[2018-10-01] MEDS: levETIRAcetam 500 MG TAB PO SCH ×2 (09:18→20:13)
[2018-10-01] MEDS: Acetaminophen 325 MG TAB PO PRN ×3 (13:03→20:13)
[2018-10-01] MEDS: Phenergan/Codeine 10-6.25mg/5ml UDCUP PO PRN ×3 (13:13→23:35)
--- NOTE | 2018-10-01 14:35 | CON ---
DATE OF CONSULTATION: 10/01/2018 CONSULTING PHYSICIAN: Magalie. REASON FOR CONSULTATION: Asthma exacerbation. HISTORY OF PRESENT ILLNESS: She is a pleasant 38-year-old, who was admitted last night with increasing shortness of breath and cough. She has a history of chronic persistent asthma. She is currently seeing an technology program manager for care. She has seen Dr. Dorman in the past for this, but I am not sure if she is actively seeing him in the office. I have no previous pulmonary function test for review. She says symptoms have been going on for quite some time. She came to the hospital yesterday because her cough was intractable. She has been taking FASENRA for treatment of her asthma, getting injections approximately once a month for that. She sounds like she is using a Trelegy Ellipta at home. She uses prednisone intermittently as needed. Also uses an albuterol nebulizer several times daily. PAST MEDICAL HISTORY: 1. Asthma. 2. Acute respiratory failure requiring mechanical ventilation. 3. Umbilical hernia. 4. Seizure disorder. PAST SURGICAL HISTORY: 1. Tubal ligation. 2. Sinus surgery. ALLERGIES: MUCINEX. SOCIAL HISTORY: She lives at home. She is disabled from her asthma. Does not smoke. Does not consume alcohol. Does not use illicit drugs. She has 2 children, one 15 and one 11. She has no pets in the house. FAMILY MEDICAL HISTORY: Unremarkable for asthma. REVIEW OF SYSTEMS: A 12-point review of systems otherwise negative, except for cough, which is nonproductive. PHYSICAL EXAMINATION: VITAL SIGNS: Temperature 98.5, pulse 108, respirations 20, O2 saturation 100%, and blood pressure 117/62. GENERAL: She has a profound cough, but does not appear to be in any distress. HEENT: Remarkable for slightly cushingoid cheeks. NECK: Without adenopathy, JVD, or bruits. LUNGS: Clear without active wheezing at this time. CARDIAC: S1 and S2. Regular without audible murmur. ABDOMEN: Soft and nontender. EXTREMITIES: No clubbing, cyanosis, or edema. IMAGING DATA: Chest x-ray shows no mass, effusion, or infiltrate. LABORATORY DATA: White blood cell count 19, hematocrit 44.7, and platelet count 258. A pH of 7.35, pCO2 of 31, and pO2 of 139. Sodium 138, potassium 3.2, chloride 109, CO2 of 18, BUN 7, creatinine 0.9, and glucose 161. ASSESSMENT: Asthma - I am not sure how exacerbated she really is at the current time. Her exam was fairly benign when I saw her other than a cough. Unfortunately, I do not have any old data on her in regard to PFTs, but I do believe her asthma is quite severe based on her description. PLAN: I think the current treatment of steroids, nebulization treatments, and her inhalers are sufficient. Dr. Dorman will resume care tomorrow. I think she can probably go home quickly. The thromax should help if she were to have any bronchitis due to bacterial organisms. Job ID: [id number]
[2018-10-01 18:16] LABS: Pregnancy Test - Urine (BHCG) Negative (Negative); Pregu Control Background? CLEAR/WHITE (CLR/WHITE); Pregu Control Bar Appear? YES (CONTROL BAR); Specific Gravity 1.006 (1.002-1.036)
[2018-10-02] MEDS: Acetaminophen 325 MG TAB PO PRN (02:54)
[2018-10-02] MEDS ORDERED: traMADol HCl 50 MG TAB PO PRN (03:15)
[2018-10-02] MEDS: Phenergan/Codeine 10-6.25mg/5ml UDCUP PO PRN ×2 (03:19→12:18)
[2018-10-02 06:13] LABS: #Lymphocytes 0.8 thou/uL (1.20-3.40); #Monocytes 0.3 thou/uL (0.11-0.59); %Basophils 0.2 % (0.0-1.0); %Eosinophils 0.2 % (0.0-10.0); %Lymphocytes 4.7 % (21.0-51.0); %Monocytes 2.1 % (0.0-10.0); %Neutrophils 92.8 % (42.0-75.0); Hemoglobin 12.9 g/dL (12.0-16.0); Mean Corpuscular HGB CONC 31.8 g/dL (32.0-36.0); Mean Corpuscular Hemoglobin 29.1 pg (27.0-31.0); Mean Corpuscular Volume 91.6 fL (78.0-98.0); Platelet Count 232 thou/uL (130-400); RBC Distribution Width 13.7 % (11.5-14.5); Red Blood Cell (RBC) Count 4.44 mill/uL (4.20-5.40); White Blood Cell (WBC) Count 16.2 thou/uL (4.8-10.8)
[2018-10-02 06:37] LABS: Anion Gap 19 mmol/L (10-20); BUN (Urea Nitrogen) 7 mg/dL (7.0-18.7); Carbon Dioxide 13 mmol/L (22-29); Chloride 111 mmol/L (98-107); Potassium 3.6 mmol/L (3.5-5.1); Sodium 139 mmol/L (136-145)
[2018-10-02 06:38] LABS: Calc. Creatinine Clearance 110 mL/min (70-130); Calcium 9.3 mg/dL (7.8-10.44); Estimated GFR-MDRD 89; Glucose 146 mg/dL (70-105); Magnesium 2.2 mg/dL (1.6-2.6)
[2018-10-02] MEDS: levETIRAcetam 500 MG TAB PO SCH (09:14)
[2018-10-02] MEDS: Enoxaparin Sodium 40 MG/0.4 ML SYRINGE SC SCH (09:14)
[2018-10-02] MEDS: Azithromycin 250 MG TAB PO SCH (09:14)
[2018-10-02] MEDS: Famotidine 20 MG TAB PO SCH (09:14)
[2018-10-02 10:04] LABS: Phosphorus 1.9 mg/dL (2.3-4.7)
[2018-10-02] MEDS ORDERED: K-Phos Neutral 250 MG TAB PO SCH (12:00)
[2018-10-02 12:02] VITALS: TEMP 98
--- NOTE | 2018-10-02 16:09 | PRG ---
DATE OF SERVICE: 10/02/2018 SERVICE: Pulmonary Medicine. INTERVAL HISTORY: The patient is doing outstanding from respiratory standpoint. Her breathing is essentially back to normal. She denies any current chest pain, fevers, or chills. Otherwise, there has been no interval change to her condition. PHYSICAL EXAMINATION: VITAL SIGNS: Afebrile, pulse 93, blood pressure 127/66, respirations 22, saturation 99% on room air. GENERAL: The patient is awake and alert, in no apparent distress. LUNGS: There is absolutely excellent air entry. I do not have any hint of a prolonged expiratory phase or wheezing. Minimal rhonchi are present, but they clear with cough. HEART: Normal rate and regular. ABDOMEN: Soft, nontender, and nondistended. Bowel sounds are positive. MUSCULOSKELETAL: No cyanosis or clubbing. Trace pitting is present in bilateral lower extremities. NEUROLOGIC: Grossly nonfocal. LABORATORY DATA: WBC is 16.2 and downtrending, hemoglobin 12.9, platelets 232,000. Neutrophil count has bounced up. PH 7.35, pCO2 of 31, PO2 of 139 on 40% FiO2 at that time. Creatinine 0.86. Basic metabolic profile is otherwise unremarkable/stable. Potassium is improved to 3.6. Urine test is unremarkable. Influenza A and B are negative. IMAGING: Chest x-ray demonstrates no acute cardiopulmonary abnormality. Cardiac silhouette is slender. There does not appear to be any significant air trapping. ASSESSMENT: Asthma with acute exacerbation. DISCUSSION AND PLAN: The patient is stable for transition out of the hospital. She can have a 10-day course of steroids, and return to her home inhalers on discharge from the hospital. I will need to see her back in clinic in the outpatient setting. She has previously not been able to come to several appointments that we have arranged for her. Hopefully, we will be able to keep her out of the hospital in the future, particularly if we keep her on good medications. Job ID: [id number]
[2018-10-02 16:12] VITALS: BP 124/63
--- NOTE | 2018-10-02 19:33 | DIS ---
DATE OF ADMISSION: 10/01/2018 DATE OF DISCHARGE: 10/02/2018 DISCHARGE DISPOSITION: Home. FOLLOWUP: 1. Follow up with primary care physician in 1 week. 2. Follow up with Dr. Dorman after 1 week. ALLERGIES: THE PATIENT IS ALLERGIC TO GUAIFENESIN. DISCHARGE MEDICATIONS: 1. Prednisone taper. 2. Albuterol inhaler as needed. 3. K-Phos 250 mg three times daily #7. 4. All other home medications were left unchanged. BRIEF HOSPITAL COURSE: The patient is a 38-year-old female with asthma, presented to the hospital with worsening shortness of breath. Please refer to the history and physical for further details. The patient was admitted to the hospital with a diagnosis of asthma exacerbation. She showed good improvement with antibiotics, steroids, and oxygen. She was evaluated by Dr. Dorman on the day of discharge. Dr. Dorman recommended steroids along with nebulizer treatment and steroids. Antibiotics have been discontinued at discharge per Pulmonary recommendation. She appears stable for discharge. FINAL DIAGNOSES: 1. Asthma exacerbation. 2. Moderate persistent asthma. 3. Seizure disorder. 4. Obesity with BMI of 31.7. 5. Hypokalemia, replaced. 6. Hypophosphatemia, replaced. 7. Chronic leukocytosis. SIGNIFICANT LABS: 1. Potassium on admission 3.2, at discharge, 3.6. 2. Phosphorus 1.9. 3. WBC on admission 19; at discharge, 16.2. Please note that the patient has a history of chronic leukocytosis. The patient will follow up with [facility] after a week. Job ID: [id number]
== END 2018-10-02 18:44 | disposition home or self-care (01) | DRG 203 ==
LOC: ERS 22:49 → 2SE 10-01 01:29
PROVIDERS: ADMIT Internal Medicine; ATTEND Internal Medicine
DX: J45.32 Mild persistent asthma with status asthmaticus (principal); G40.909 Epilepsy, unspecified, not intractable, without status epilepticus; E66.9 Obesity, unspecified; Z68.31 Body mass index [BMI] 31.0-31.9, adult; E87.6 Hypokalemia; E83.39 Other disorders of phosphorus metabolism
CPT/HCPCS: 36415; 71045; 80048; 81025; 82805; 83735; 84100; 85025; 87804; 90471; 90686; 90732; 93005; 94644; 94760; G0008; G0009; J0696; J1650; J2920; J2930; J3105; J7050; J7611; J7620

== ENCOUNTER 2018-10-04 09:42 | Outpatient (CLI) | payer OTHER ==
--- NOTE | 2018-10-04 10:17 | RAD ---
TWO VIEW CHEST: History: Dyspnea. FINDINGS: The lungs are well aerated and are clear. No infiltrate. Heart and mediastinum are unremarkable. Evid ence of old lateral right side rib fractures. When compared to portable film of 09-30-18, the perihilar infiltrates noted on that exam are not appar ent on the current study. IMPRESSION: No acute finding. POS: [facility]
== END 2018-10-04 09:43 | disposition home or self-care (01) ==
LOC: RAD 09:42
PROVIDERS: ATTEND Internal Medicine
DX: R06.00 Dyspnea, unspecified (principal)
CPT/HCPCS: 71046

== ENCOUNTER 2018-11-03 08:16 | Emergency (ER) | payer OTHER ==
[2018-11-03] MEDS ORDERED: Albuterol Sulfate 2.5 mg/3 ml Neb ONE (08:43)
--- NOTE | 2018-11-03 10:13 | RAD ---
PA AND LATERAL CHEST: HISTORY: Shortness of breath. COMPARISON: 09/01/2018 FINDINGS: Heart size and mediastinum are within normal limits. Lungs are clear of infiltrates. Old right rib fractures are present. IMPRESSION: No active intrathoracic disease. POS: [facility]
== END 2018-11-03 11:25 | disposition home or self-care (01) ==
LOC: ERS 08:16
DX: J45.901 Unspecified asthma with (acute) exacerbation (principal); Z79.51 Long term (current) use of inhaled steroids
CPT/HCPCS: 71046; 94644; J7611; J7620

== ENCOUNTER 2018-11-14 01:11 | Emergency (ER) | payer OTHER | END 2018-11-14 04:06 | disposition left against medical advice (07) | LOC: ERS 01:11 | DX: Z53.21 Procedure and treatment not carried out due to patient leaving prior to being seen by health care provider (principal) ==

== ENCOUNTER 2018-12-02 07:55 | Inpatient (IN) | payer OTHER ==
[2018-12-02] MEDS ORDERED: Lorazepam 2 MG/ML VIAL ONE (08:05)
[2018-12-02] MEDS ORDERED: Succinylcholine Chloride 20 MG/ML 10 ml SYRINGE FS ONE (08:08)
[2018-12-02] MEDS ORDERED: Propofol 1,000 MG/100 ML VIAL IV ONE ×2 (08:18→12:20)
[2018-12-02] MEDS ORDERED: fentaNYL Citrate/PF 2,000 MCG in Sodium Chloride 0.9% 60 ML IV SCH (08:20)
--- NOTE | 2018-12-02 08:28 | RAD ---
FPortable supine chest: HISTORY: Intubation. COMPARISON: 09/30/2018 study. FINDINGS: Endotracheal and NG tubes are in satisfactory position. Heart size and mediastinum are with in normal limits. The lungs are clear of infiltrates. Old right rib fractures are present. IMPRESSION: Endotracheal NG tube in satisfactory position.
[2018-12-02] MEDS ORDERED: Albuterol Sulfate 2.5 mg/3 ml Neb ONE (08:32)
[2018-12-02 08:33] LABS: Analyzer IN Cardio ER; Base Excess (BEa) -6.4 mEq/L (-2.0 to +3.0); Calcium, Ionized 1.19 mmol/L (1.12-1.30); Carboxyhemoglobin (COHb) 0.1 gm% (0.0-3.0); Hemoglobin (Hb) 13.9 g/dL (12.0-16.0); O2 Tension (PaO2) 140.4 mmHg (80.0-100.0); Potassium - ABG Lab 3.38 mmol/L (3.70-5.30)
[2018-12-02] MEDS ORDERED: Midazolam HCl 5 mg/ml Vial ONE ×2 (08:33→09:25)
[2018-12-02 08:35] LABS: CO2 Tension 63.4 mmHg (35.0-45.0); Puncture Site LRA; pH, Arterial 7.18 (7.35-7.45)
[2018-12-02 09:00] LABS: Acetaminophen Less than 6.0 mcg/mL (10.0-30.0); Alcohol Less than 10 mg/dL (Less than 10); CK (CPK) 102 U/L (29-168); Salicylate Less than 8.0 mg/dL (15.0-30.0)
[2018-12-02 09:01] LABS: ALT (SGPT) 18 U/L (8-55); AST (SGOT) 19 U/L (5-34); Alkaline Phosphatase 110 U/L (40-150); Anion Gap 17 mmol/L (10-20); BUN (Urea Nitrogen) 9 mg/dL (7.0-18.7); Bilirubin, Total 0.2 mg/dL (0.2-1.2); Calc. Creatinine Clearance 0 mL/min (70-130); Calcium 8.5 mg/dL (7.8-10.44); Carbon Dioxide 24 mmol/L (22-29); Chloride 106 mmol/L (98-107); Estimated GFR-MDRD 70; Globulin 2.5 g/dL (2.4-3.5); Glucose 247 mg/dL (70-105); Potassium 3.8 mmol/L (3.5-5.1); Protein, Total 6.5 g/dL (6.0-8.3); Sodium 143 mmol/L (136-145)
[2018-12-02 09:05] LABS: Bilirubin Negative (Negative); Blood, Urine Large (Negative); Clarity CLEAR (Clear); Glucose, Urine (Dipstick) 100 mg/dL (Negative); Leukocyte Trace (Negative); Nitrite Negative (Negative); Protein, Urine (Dipstick) 30 mg/dL (Neg-Trace); Specific Gravity, Urine 1.016 (1.002-1.036); Urobilinogen 0.2 mg/dL (0.2-1.0)
[2018-12-02 09:07] LABS: Bacteria/HPF 2+ HPF (None Seen); Pathc Cast-AUWi Flag 0.54 (0-2.49); Pregnancy Test - Urine (BHCG) Negative (Negative); Pregu Control Background? CLEAR/WHITE (CLR/WHITE); Pregu Control Bar Appear? YES (CONTROL BAR); Specific Gravity 1.016 (1.002-1.036); Squamous Epithelial 0-3 HPF (0-3)
[2018-12-02 09:13] LABS: Band 2 % (5-11); Hemoglobin 13.3 g/dL (12.0-16.0); Lymphocytes 55 % (21-51); MDiff Complete? YES; Mean Corpuscular HGB CONC 31.8 g/dL (32.0-36.0); Mean Corpuscular Hemoglobin 29.4 pg (27.0-31.0); Mean Corpuscular Volume 92.4 fL (78.0-98.0); Mean Platelet Volume 8.3 fL (7.4-10.4); Monocytes 4 % (0-10); Neutrophil 39 % (42-75); Platelet Count 288 thou/uL (130-400); RBC Distribution Width 12.6 % (11.5-14.5); Red Blood Cell (RBC) Count 4.54 mill/uL (4.20-5.40); White Blood Cell (WBC) Count 22.3 thou/uL (4.8-10.8)
[2018-12-02 09:15] LABS: Amphetamine Not Detected (NotDetected); Barbiturates Screen Not Detected (NotDetected); Benzodiazepine Screen Not Detected (NotDetected); Cocaine Metabolite Screen Not Detected (NotDetected); Medtox Control Line Valid? VALID (VALID); Medtox Reader # READER 4; Methadone Not Detected (NotDetected); Methamphetamine Not Detected (NotDetected); Opiate Screen Not Detected (NotDetected); Oxycodone Screen Not Detected (NotDetected); Phencyclidine (PCP) Not Detected (NotDetected); THC/Cannabinoid Screen Not Detected (NotDetected); Tricyclic Screen Not Detected (NotDetected)
[2018-12-02 09:19] LABS: RBC/HPF 21-50 HPF (0-3)
[2018-12-02 09:20] LABS: Hyaline Casts/LPF 4-6 HYALINE CAST LPF (0-3 Hyaline); Renal Epithelial None Seen HPF (0-3); Transitional Epithelial 0-3 HPF (0-3)
[2018-12-02] MEDS ORDERED: Ondansetron PF 4 MG/2 ML Vial ONE (09:39)
[2018-12-02] MEDS ORDERED: Dextrose 5% in Water 1,000 ML IV PRN (12:57)
[2018-12-02] MEDS ORDERED: HumaLOG 300 UNITS/3 ML VIAL SC PRN (12:57)
[2018-12-02] MEDS ORDERED: Dextrose 50% Abboject 50 ML SYRINGE SLOW IVP PRN (12:57)
[2018-12-02] MEDS: Albuterol Sulfate 1.25 MG/3 ML NEB NEB SCH ×2 (13:41→19:03)
[2018-12-02] MEDS ORDERED: Morphine 2 MG/ML SYRINGE SLOW IVP PRN (14:01)
[2018-12-02] MEDS ORDERED: Fentanyl BOLUS 250 ML IVPB PRN (14:01)
[2018-12-02] MEDS ORDERED: Lorazepam 2 MG/ML VIAL SLOW IVP PRN (14:01)
[2018-12-02] MEDS ORDERED: DISCONTINUE PREVIOUS NARCOTIC PAIN MEDICATIONS AND BENZODIAZEPINES FS SCH (14:01)
[2018-12-02] MEDS ORDERED: Propofol BOLUS 1,000 MG/100 ML VIAL IV PRN (14:01)
[2018-12-02 14:31] VITALS: BMI 28.5
[2018-12-02] MEDS ORDERED: Lidocaine 2% PF 100 mg/5 ml Syringe ONE (15:00)
[2018-12-02] MEDS ORDERED: Sodium Bicarb 50 MEQ/50 ML Abboject 8.4% SYRINGE ONE (15:00)
--- NOTE | 2018-12-02 16:02 | HP ---
CHIEF COMPLAINT: Shortness of breath. HISTORY OF PRESENT ILLNESS: This patient is a 38-year-old female with a history of significant asthma with intermittent exacerbations, which in the past required hospitalizations and intubations. This patient presented to the emergency department via EMS. The patient is currently intubated and cannot give any history. The records indicate that the EMS were called to the patient's home. When they arrived, they said the room smelled strongly of marijuana and there were 2 males with her, but were unable to give any history. The patient was apparently lying on the couch. She was found to be in respiratory distress. She was given Solu-Medrol, magnesium, DuoNebs x3, and 0.3 of epinephrine, and subsequently transported to the emergency department. Once the patient arrived here, she became agitated and combative and ultimately required intubation. She had an OG tube placed, but had some emesis. Some material was produced with her emesis, which appeared to be vegetative in nature. It is unclear what it is, but it almost appears to be unchewed. Subsequently, she has had NG tube placed. She has remained combative and required a fair amount of propofol and fentanyl in order to maintain sedation for her. REVIEW OF SYSTEMS: Unobtainable given the patient's sedation. PAST MEDICAL HISTORY: Obtained from the patient's record from previous admissions, the most recent being 2 months ago. She has moderate persistent asthma with frequent exacerbations, history of respiratory failure requiring intubation, umbilical hernia, history of seizure disorder. PAST SURGICAL HISTORY: Surgery includes tubal ligation and sinus surgery. ALLERGIES: MUCINEX, ROBITUSSIN. SOCIAL HISTORY: The patient lives at home. She previously denied smoking, alcohol, or drugs. FAMILY HISTORY: Negative. MEDICATIONS: Unknown, although at the time of her discharge on October 02, 2018, she was on; 1. Phosphorus. 2. Phenergan with codeine. 3. Tramadol. 4. Albuterol HFA. 5. Prednisone. 6. Montelukast. 7. Albuterol. PHYSICAL EXAMINATION: VITAL SIGNS: BP 119/76, pulse 128, respirations 24, O2 saturation 100%. She is on the ventilator. GENERAL APPEARANCE: Sedated, intubated, in no distress. HEENT: Pupils are constricted and minimally reactive. She has no visible OP lesions. NG tube and ET tube in place. HEART: Tachycardic, regular. No murmurs. LUNGS: Diminished, but clear without significant wheezes audible presently. ABDOMEN: Soft, nontender, and nondistended. Positive bowel sounds. No masses. No organomegaly. EXTREMITIES: No cyanosis, clubbing, or edema. Pulses are symmetric and palpable. NEUROLOGICAL: The patient is adequately sedated. LABORATORY DATA: White count 22.3, hemoglobin 13.3. There are 39% neutrophils, 2% bands, 55% lymphocytes. Chemistry; sodium 143, potassium 3.8, chloride 106, CO2 of 24, BUN 9, creatinine is 1.06, glucose 247, calcium 8.5, AST 19, ALT 18. CK 102. Troponin less than 0.01. BNP 15. Albumin 4.0. Urinalysis shows large blood, trace leukocyte esterase, 25 to 50 red cells, 7 to 10 white cells, 2+ bacteria. Urine drug screen is negative. ABG results; pH is 7.18, pCO2 is 63.4, pO2 is 140. DIAGNOSTIC DATA: Chest x-ray shows ET tube, no other acute cardiopulmonary findings. IMPRESSION AND PLAN: 1. Acute hypercapnic respiratory failure. The patient is now intubated. End-tidal CO2s are coming down significantly. 2. Acute asthma exacerbation. The patient has a history of asthma. There is not a lot of history available unfortunately at this point. However, she received aggressive treatment by EMS on their initial arrival, and the patient's respiratory status on exam appears to be somewhat improved. We will place her in the ICU on the ventilator and defer to Pulmonary Critical Care for further management. 3. Emesis. The patient had a single episode, unclear if there was any aspiration, although no evidence of that at this time. 4. Agitation, unclear if the patient had acidosis and hypercapnia leading to her agitation and altered mental status. However, there was some concern that there may have been some drug usage that may be undetectable on the current screen, took a significant amount of propofol and fentanyl in order to get her adequately sedated. 5. Leukocytosis. The patient received steroids and epinephrine, likely causing significant demargination. 6. Hyperglycemia. The patient does not carry a history of diabetes. This may be related to the steroids and epinephrine as well. We will initiate Accu-Cheks and sliding scale insulin. 7. History of seizure disorder. We will keep her on Keppra if possible. Job ID: [id number]
--- NOTE | 2018-12-02 17:31 | CON ---
DATE OF CONSULTATION: 12/02/2018 SERVICE: Pulmonary Medicine. REASON FOR CONSULTATION: Respiratory failure. HISTORY OF PRESENT ILLNESS: The patient is a 38-year-old female, who is well known to me. She was in her usual state of health, apparently partying with some friends. Ultimately, she had increasing shortness of breath and was brought to the emergency department. She was coughing and gasping. Interventions are included Solu-Medrol, DuoNebs, and epinephrine. She was increasingly combative and required intubation after significant sedation. At this point, I cannot get additional elements of the history from the patient. There were no reports of recent illness. The family is at bedside suggesting there were no recent sick contacts. PAST MEDICAL HISTORY: 1. Asthma, possible with frequent exacerbations. 2. Seizure disorder. 3. Umbilical hernia. PAST SURGICAL HISTORY: 1. Tubal ligation. 2. Sinus surgery. SOCIAL HISTORY: She lives at home. Previously denied alcohol, tobacco, or illicit drug use, though it is apparent that she was exposed to significant amount of cannabinoid and/or K2. FAMILY HISTORY: Noncontributory. ALLERGIES: MUCINEX, ROBITUSSIN. MEDICATIONS: List of her inpatient medications was reviewed. Multiple updates were made at this time. REVIEW OF SYSTEMS: Cannot be obtained as the patient is currently intubated and sedated. PHYSICAL EXAMINATION: VITAL SIGNS: Afebrile, pulse 102, blood pressure 86/46, respirations 24, saturation 99% on 21% FiO2 and a PEEP of 5. HEENT: Normocephalic and atraumatic. Sclerae white. Conjunctivae pink. Oral mucosa is moist without lesions. LUNGS: Excellent air entry. There is no prolonged expiratory phase or wheezing appreciated. HEART: Normal rate. Regular. ABDOMEN: Soft, nontender, and nondistended. Bowel sounds are positive. MUSCULOSKELETAL: No cyanosis or clubbing. There is no pitting in the bilateral lower extremities. NEUROLOGIC: Grossly nonfocal. LABORATORY DATA: WBC 22.3, hemoglobin 13.3, and platelets 288,000. Band count is only 2% on top of 39% neutrophils. A pH 7.18, pCO2 of 63, and pO2 of 140. At the time, she was on SIMV with a rate of 20 and a tidal volume of over 500. Basic metabolic profile and liver function studies were otherwise unremarkable. Troponin is negative x1. CK 102. BNP 15. Urinalysis is positive for 2+ bacteria and only 7-10 white blood cells, there are more red blood cells present, nitrites are negative, and leukocyte esterase is only trace. Urine test is negative. Urine drug screen is negative including alcohol, acetaminophen, and salicylates. IMAGING STUDIES: Chest x-ray demonstrates no acute cardiopulmonary abnormality, endotracheal tube is in good position. Lung volumes are normal in size and do not reflect any significant degree of hyperexpansion. Enteric catheter courses below the level of the diaphragm. ASSESSMENT: 1. Metabolic encephalopathy. 2. Drug overdose, possible. 3. Asthma with possible acute exacerbation. 4. History of intubation x2 with immediate recovery in the respiratory illness. DISCUSSION AND PLAN: I do not know if this is an asthma exacerbation. The patient does not have obstructive airflow limitation on mechanical ventilation and they are only 1.5 hours after she was intubated. We will stop steroids and all breathing treatments. There is no indication for antibiotics. We will leave her on mechanical ventilation for one night. If all goes well, we will extubate her first thing in the morning. Pulmonary Critical Care will continue to follow along, but as previously noted, I really do not think we are dealing with an asthma attack here. I am increasingly suspicious of vocal cord dysfunction. I would certainly love to see her in the outpatient setting, so that we can clarify her underlying disease process. Critical care time: 30 minutes. Job ID: [id number] MTDD
[2018-12-02] MEDS: fentaNYL Citrate/PF 2,000 MCG in Sodium Chloride 0.9% 60 ML IV SCH (19:08)
[2018-12-02] MEDS: Propofol 1,000 MG/100 ML VIAL IV PRN (20:41)
[2018-12-03] MEDS: Albuterol Sulfate 1.25 MG/3 ML NEB NEB SCH ×2 (00:14→07:16)
[2018-12-03 05:21] LABS: Anion Gap 13 mmol/L (10-20); BUN (Urea Nitrogen) 11 mg/dL (7.0-18.7); Calc. Creatinine Clearance 108 mL/min (70-130); Calcium 8.6 mg/dL (7.8-10.44); Carbon Dioxide 26 mmol/L (22-29); Chloride 107 mmol/L (98-107); Estimated GFR-MDRD Greater than 90; Glucose 102 mg/dL (70-105); Potassium 3.3 mmol/L (3.5-5.1); Sodium 143 mmol/L (136-145)
[2018-12-03 05:34] LABS: Hemoglobin 12.1 g/dL (12.0-16.0); Lymphocytes 12 % (21-51); MDiff Complete? YES; Mean Corpuscular HGB CONC 31.7 g/dL (32.0-36.0); Mean Corpuscular Hemoglobin 29.1 pg (27.0-31.0); Mean Corpuscular Volume 91.7 fL (78.0-98.0); Mean Platelet Volume 8.1 fL (7.4-10.4); Monocytes 6 % (0-10); Neutrophil 82 % (42-75); Platelet Count 237 thou/uL (130-400); RBC Distribution Width 12.6 % (11.5-14.5); Red Blood Cell (RBC) Count 4.17 mill/uL (4.20-5.40); White Blood Cell (WBC) Count 18.9 thou/uL (4.8-10.8)
[2018-12-03] MEDS: Propofol 1,000 MG/100 ML VIAL IV PRN ×3 (06:01→20:15)
[2018-12-03] MEDS ORDERED: Albuterol Sulfate 1.25 MG/3 ML NEB NEB PRN (07:39)
[2018-12-03] MEDS ORDERED: Magnesium Sulfate 4 GM in Sodium Chloride 0.9% 250 ML 250 ML IVPB SCH (07:45)
--- NOTE | 2018-12-03 07:57 | PRG ---
DATE OF SERVICE: 12/03/2018 SERVICE: Pulmonary Medicine. INTERVAL HISTORY: The patient actually has some obstructive airflow limitation this morning. She has high peak pressures and a normal plateau pressure. This all consistent with obstructive airflow limitation. I are very happy that I am witnessing this. Otherwise, there has been no interval change to her condition. PHYSICAL EXAMINATION: VITAL SIGNS: Afebrile, pulse 92, blood pressure 119/70, respirations 12, saturation 100% on 21% FiO2 and PEEP of 5. GENERAL: The patient is intubated today. HEENT: Normocephalic and atraumatic. Sclerae white. Conjunctivae pink. Oral mucosa is moist without lesions. LUNGS: Reduced air entry. No prolonged expiratory phase with polyphonic wheezing. HEART: Normal rate regular. ABDOMEN: Soft, nontender, and nondistended. Bowel sounds are positive. MUSCULOSKELETAL: No cyanosis or clubbing. EXTREMITIES: There is no pitting in the bilateral lower extremities. NEUROLOGIC : Grossly nonfocal. LABORATORY DATA: WBC 18.9, hemoglobin 12.1, platelets 237,000, neutrophil count is 82%, band count was previously low. Basic metabolic profile is essentially unremarkable other than potassium of 3.3. Urine drug screen was previously unremarkable. ASSESSMENT: 1. Asthma with acute exacerbation. 2. Hypokalemia. 3. Drug abuse, suspected. 4. Metabolic encephalopathy, resolving. DISCUSSION AND PLAN: We will schedule some steroids, DuoNeb q.6, and albuterol q.2 as needed. I will repeat a chest x-ray. Potassium will be replaced. We will also give her some magnesium. Once her obstructive airflow limitation resolves, she will be placed on a spontaneous breathing trial and extubation will be considered. Critical care time: 30 minutes. Job ID: [id number] MTDD
[2018-12-03] MEDS: methylPREDNISolone Sod Succ 40 MG VIAL IVP SCH ×2 (08:05→13:39)
[2018-12-03] MEDS: Enoxaparin Sodium 40 MG/0.4 ML SYRINGE SC SCH (08:06)
[2018-12-03] MEDS: predniSONE 20 MG TAB PO SCH (09:19)
--- NOTE | 2018-12-03 09:21 | RAD ---
PORTABLE CHEST: Date: 12/03/18 HISTORY: Intubated. Increasing peak pressures. COMPARISON: 12/02/18 study. FINDINGS: Heart size and mediastinum are within normal limits. Lungs are clear of infiltrates. Endotracheal tub e is in satisfactory position. NG tube is seen below the hemidiaphragm. IMPRESSION: Stable exam as compared to the prior study. POS: [facility]
[2018-12-03] MEDS ORDERED: Artificial Tears 18 DROP/0.9 ML EA EYE PRN (10:57)
[2018-12-03] MEDS ORDERED: Artificial Tear Sol 15 ML BOT EA EYE PRN (11:13)
--- NOTE | 2018-12-03 14:19 | PRG ---
DATE OF SERVICE: 12/03/2018 SUBJECTIVE: The patient is seen and examined at the bedside. She is sedated and intubated on the ventilator. OBJECTIVE: VITAL SIGNS: Blood pressure is 96/51, heart rate 65, respiratory rate is 13, O2 saturation is 100%. Her temperature is 98.0. HEENT: Her pupils are sluggish in response to light. Sclerae are nonicteric. Conjunctivae are pinkish. She is orally intubated. LUNGS: Breath sounds slightly diminished at both bases with few wheezes bilaterally at both bases. HEART: S1 and S2 normal. No S3. No S4. ABDOMEN: Soft, nontender. There is umbilical hernia present nonincarcerated. Bowel sounds sluggish. EXTREMITIES: No clubbing, cyanosis, or edema. NEUROLOGIC: Postponed since she is sedated. LABORATORY DATA: Labs showed a white count of 18.9, hemoglobin 12.1, hematocrit 38.2, platelet count is 237,000, 82% of neutrophils. Sodium of 143, potassium 3.3, chloride 107, CO2 of 26, BUN 11, creatinine 0.84, glucose 102, calcium 8.6. Microbiology, none. Chest x-ray done this morning did not show any significant changes, endotracheal tube is in satisfactory position and NG tube is seen below the hemidiaphragm. ASSESSMENT: 1. Acute exacerbation of asthma. 2. Metabolic encephalopathy. 3. Hypokalemia. 4. Drug-seeking behavior. 5. History of seizure disorder. 6. Hyperglycemia being stabilized, last couple of Accu-Cheks are between 95 and 98. PLAN: Plan is to continue mechanical ventilation for now with sedation. Continue current regimen on steroids and DuoNeb and replacing potassium. Silhouette Artist is going to make decision about when she is going to be extubated. Job ID: [id number]
[2018-12-03] MEDS: fentaNYL Citrate/PF 2,000 MCG in Sodium Chloride 0.9% 60 ML IV SCH (14:39)
[2018-12-04] MEDS: Propofol 1,000 MG/100 ML VIAL IV PRN (05:48)
[2018-12-04] MEDS: predniSONE 20 MG TAB PO SCH (08:06)
[2018-12-04] MEDS: Enoxaparin Sodium 40 MG/0.4 ML SYRINGE SC SCH (08:48)
[2018-12-04] MEDS ORDERED: Sodium Chloride 0.9% 1,000 ML IV SCH (09:15)
[2018-12-04] MEDS: diphenhydrAMINE 50 MG CAP PO PRN (11:35)
--- NOTE | 2018-12-04 13:48 | PRG ---
DATE OF SERVICE: 12/04/2018 SUBJECTIVE: The patient is seen and examined at the bedside. She is in C10 Intensive Care Unit. She is still intubated. Her sedation is turned down. She follows with her eyes. OBJECTIVE: VITAL SIGNS: Blood pressure is 126/80, pulse is 103, respirations 18, and O2 saturation 95%. HEENT: Her pupils are responding to light properly. She is orally intubated. LUNGS: Breath sounds diminished at both bases with few rales bilaterally at both bases. HEART: S1 and S2, somewhat tachycardic. No S3. No S4. ABDOMEN: Soft, nontender with non-incarcerated umbilical hernia present. Bowel sounds are present. EXTREMITIES: No clubbing, cyanosis, or edema. LABORATORY DATA: Glycemia is ranging from 95 to 118. IMPRESSION: 1. Acute exacerbation of asthma. 2. Metabolic encephalopathy. 3. Hypokalemia. 4. Drug-seeking behavior. 5. History of seizure disorder. 6. Respiratory failure and mechanical ventilation. 7. Hyperglycemia, improved. PLAN: I am going to stop her Accu-Cheks since her glycemia is back to normal and she will most likely be extubated today. We will continue her prednisone, continue her Keppra. We will switch her to p.o. after she is extubated and able to take pills orally, give DuoNeb. Job ID: [id number]
--- NOTE | 2018-12-04 15:02 | PRG ---
DATE OF SERVICE: 12/04/2018 SERVICE: Pulmonary Medicine. INTERVAL HISTORY: The patient is doing really well from respiratory standpoint. The obstructive airflow limitation of the previously noted is drastically improved. Denies any current chest pain, fevers, or chills. Otherwise, there has been no interval change to her condition. She did well on mechanical ventilation overnight. Nursing reports no overnight events. PHYSICAL EXAMINATION: VITAL SIGNS: Afebrile, pulse 100, blood pressure 123/86, respirations 19, and saturation 100% on 21% FiO2 and a PEEP of 5. GENERAL: The patient is awake and alert, in no apparent distress. LUNGS: Decent air entry. Slightly prolonged expiratory phase. No wheezing, rhonchi, or crackles are appreciated. HEART: Normal rate and regular. ABDOMEN: Soft, nontender, and nondistended. Bowel sounds are positive. MUSCULOSKELETAL: No cyanosis or clubbing. No pitting in the bilateral lower extremities. NEUROLOGIC: Grossly nonfocal. LABORATORY DATA: Blood sugar ranges from 89 to 118. ASSESSMENT: 1. Asthma with acute exacerbation. 2. Hypokalemia. 3. Metabolic encephalopathy, resolved. DISCUSSION AND PLAN: The patient is doing fine from respiratory standpoint. At this point, put on a spontaneous breathing trial. If she meets criteria, extubation will be considered. If she does this well, we will advance her diet, mobilize her, and get the Nieto catheter out. Pulmonary Critical Care will continue to follow along in this location. We will continue to follow. I will continue her steroids and nebulized medications. Job ID: [id number]
[2018-12-04] MEDS: levETIRAcetam 500 MG TAB PO SCH (20:28)
[2018-12-04] MEDS ORDERED: Acetaminophen 325 MG TAB PO PRN (22:45)
[2018-12-05 04:47] LABS: #Lymphocytes 2.1 thou/uL (1.20-3.40); #Monocytes 0.8 thou/uL (0.11-0.59); #Neutrophils 10.2 thou/uL (1.40-6.50); %Basophils 0.2 % (0.0-1.0); %Eosinophils 0.4 % (0.0-10.0); %Lymphocytes 15.6 % (21.0-51.0); %Monocytes 6.4 % (0.0-10.0); %Neutrophils 77.5 % (42.0-75.0); Hemoglobin 11.5 g/dL (12.0-16.0); Mean Corpuscular HGB CONC 32.2 g/dL (32.0-36.0); Mean Corpuscular Hemoglobin 29.7 pg (27.0-31.0); Mean Corpuscular Volume 92.2 fL (78.0-98.0); Mean Platelet Volume 8.3 fL (7.4-10.4); Platelet Count 198 thou/uL (130-400); RBC Distribution Width 12.5 % (11.5-14.5); Red Blood Cell (RBC) Count 3.89 mill/uL (4.20-5.40); White Blood Cell (WBC) Count 13.2 thou/uL (4.8-10.8)
[2018-12-05 05:01] LABS: Anion Gap 10 mmol/L (10-20); BUN (Urea Nitrogen) 9 mg/dL (7.0-18.7); Calc. Creatinine Clearance 134 mL/min (70-130); Calcium 8.3 mg/dL (7.8-10.44); Carbon Dioxide 28 mmol/L (22-29); Chloride 106 mmol/L (98-107); Estimated GFR-MDRD Greater than 90; Glucose 89 mg/dL (70-105); Potassium 3.5 mmol/L (3.5-5.1); Sodium 140 mmol/L (136-145)
[2018-12-05] MEDS: predniSONE 20 MG TAB PO SCH (08:54)
[2018-12-05] MEDS: Enoxaparin Sodium 40 MG/0.4 ML SYRINGE SC SCH (08:54)
[2018-12-05] MEDS: levETIRAcetam 500 MG TAB PO SCH ×2 (08:56→20:44)
--- NOTE | 2018-12-05 10:24 | PRG ---
DATE OF SERVICE: 12/05/2018 SERVICE: Pulmonary Medicine. INTERVAL HISTORY: The patient is breathing comfortably from respiratory standpoint. She is breathing comfortably. No work of breathing is identified. She has no complaints of chest pain, fevers, or chills. Her wheezing is back to baseline. PHYSICAL EXAMINATION: VITAL SIGNS: Afebrile, pulse 68, blood pressure 110/77, respirations 21, saturation 100% on room air. GENERAL: The patient is awake and alert, in no apparent distress. LUNGS: Good air entry, but with a slightly prolonged expiratory phase. Minimal wheezing is present. No rhonchi or crackles are appreciated. HEART: Normal rate and regular. ABDOMEN: Soft, nontender, nondistended. Bowel sounds are positive. MUSCULOSKELETAL: No cyanosis or clubbing. No pitting in the bilateral lower extremities. NEUROLOGIC: Grossly nonfocal. LABORATORY DATA: WBC 13.2, hemoglobin 11.5, platelets 198,000. Basic metabolic profile is unremarkable. ASSESSMENT: 1. Status asthmaticus, resolved. 2. Hypokalemia, resolved. 3. Metabolic encephalopathy, resolved. DISCUSSION AND PLAN: The patient will be transitioned out of the ICU to the medical unit. If she is stable overnight, she will be ready for discharge in the morning. We will complete a 14-day course of steroids. No taper is required. When she is discharged from the hospital, she will need to follow up with her asthma physician. I will continue to follow in-house. Job ID: [id number]
[2018-12-05] MEDS: diphenhydrAMINE 50 MG CAP PO PRN (12:03)
--- NOTE | 2018-12-05 14:04 | PDOC.PN ---
- Subjective Encounter Start Date: 12/05/18 Encounter Start Time: 07:00 Pt seen for followup re: asthma exacerbation. Feels better. Throat is sore. - Objective Resuscitation Status - Order Detail: 12/02/18 11:45 Resuscitation Status Routine Resuscitation Status: FULL: Full Resuscitation MAR Reviewed: Yes Vital Signs & Weight: Vital Signs (12 hours) Temp Pulse Resp BP Pulse Ox 12/05/18 13:50 70 14 12/05/18 12:44 97 12/05/18 11:25 98.3 F 78 18 122/73 97 12/05/18 07:05 68 15 99 12/05/18 07:00 98.5 F 12/05/18 04:00 98.4 F Weight Admit Weight 166 lb 10.711 oz Weight 166 lb 10.711 oz Most Recent Monitor Data Heart Rate from ECG 85 NIBP 110/72 NIBP BP-Mean 84 Respiration from ECG 26 SpO2 100 I&O: 12/04/18 12/05/18 12/06/18 06:59 06:59 06:59 Intake Total 1116 700 480 Output Total 1074 1190 650 Balance 42 490 -170 Result Diagrams: 12/05/18 04:12 12/05/18 04:12 Additional Labs: labs reviewed by me Phys Exam - Physical Examination Constitutional: NAD HEENT: moist MMs Neck: supple Respiratory: wheezing present Cardiovascular: RRR Gastrointestinal: soft Neurological: moves all 4 limbs Psychiatric: normal affect Dx/Plan (1) Asthma exacerbation Code(s): J45.901 - UNSPECIFIED ASTHMA WITH (ACUTE) EXACERBATION Status: Acute Qualifiers: Asthma severity: severe Asthma persistence: persistent Qualified Code(s) : J45.51 - Severe persistent asthma with (acute) exacerbation Comment: Improved, continue oxygen PRN, steroids and bronchodilators. (2) Acute respiratory failure with hypercapnia Code(s): J96.02 - ACUTE RESPIRATORY FAILURE WITH HYPERCAPNIA Status: Resolved - Plan plan discussed w/ family * . Likely home tomorrow Review of Systems - Review of Systems ENT: Throat Pain Respiratory: SOB with Excertion. negative: Cough, Shortness of Breath, Pleuritic Pain, Wheezing Cardiovascular: other. negative: chest pain, palpitations, orthopnea, paroxysmal nocturnal dyspnea, edema, light headedness - Medications/Allergies Allergies/Adverse Reactions: Allergies Allergy/AdvReac Type Severity Reaction Status Date / Time adhesive Allergy Verified 05/16/18 00:44 guaifenesin [From Robitussin] Allergy Rash Verified 05/16/18 00:44 Medications: Current Medications Acetaminophen (Tylenol) 650 mg PO Q4H PRN PRN Reason: Headache/Fever/MILDPain 1-3 Last Admin: 12/05/18 01:00 Dose: 650 mg Albuterol Sulfate (Albuterol Sulfate) 2.5 mg NEB Q2H PRN PRN Reason: SOB &/or Wheezing Albuterol/Ipratropium (Duoneb) 3 ml NEB [id number] [facility] Last Admin: 12/05/18 13:50 Dose: 3 ml Diphenhydramine HCl (Benadryl) 50 mg PO Q6H PRN PRN Reason: Itching & Insomnia Last Admin: 12/05/18 12:03 Dose: 50 mg Enoxaparin Sodium (Lovenox) 40 mg SC 0900 [facility] Last Admin: 12/05/18 08:54 Dose: 40 mg Levetiracetam (Keppra) 500 mg PO BID [facility] Last Admin: 12/05/18 08:56 Dose: 500 mg Prednisone (Prednisone) 40 mg PO QAM-WM [facility] Last Admin: 12/05/18 08:54 Dose: 40 mg
[2018-12-05] MEDS: Cepastat Lozenges 1 LOZ PO PRN ×2 (16:19→19:25)
[2018-12-06] MEDS: predniSONE 20 MG TAB PO SCH (08:44)
[2018-12-06] MEDS: Enoxaparin Sodium 40 MG/0.4 ML SYRINGE SC SCH (08:44)
[2018-12-06] MEDS: levETIRAcetam 500 MG TAB PO SCH (08:44)
[2018-12-06 10:09] VITALS: BP 118/73; TEMP 98.1
--- NOTE | 2018-12-06 10:44 | PRG ---
DATE OF SERVICE: 12/06/2018 SERVICE: Pulmonary Medicine. INTERVAL HISTORY: The patient is doing fine from respiratory standpoint. No complaints of shortness of breath or chest discomfort. She is getting her breathing treatments without any issue. She did not have any events overnight. There are no fevers. PHYSICAL EXAMINATION: VITAL SIGNS: Afebrile, pulse 64, blood pressure 118/73, respirations are 16, and saturation 94% on room air. GENERAL: The patient is awake and alert, in no apparent distress. LUNGS: Excellent air entry. No crackles are present. There is a minimally prolonged expiratory phase with minimal wheezing present. No rhonchi. HEART: Normal rate and regular. ABDOMEN: Soft, nontender, and nondistended. Bowel sounds are positive. MUSCULOSKELETAL: No cyanosis or clubbing. No pitting in the bilateral lower extremities. NEUROLOGIC: Grossly nonfocal. LABORATORY DATA: WBC 13.2 and downtrending and hemoglobin 11.5. Basic metabolic profile was previously unremarkable. ASSESSMENT: 1. Status asthmaticus, resolved. 2. Hypokalemia, resolved. 3. Metabolic encephalopathy, resolved. DISCUSSION AND PLAN: The patient can go out on a 14-day course of prednisone. After the 14 days at 40 mg daily, we can taper the dose over a period of a week or two. She needs to follow up very closely with her ENT/allergy physician, who manages her asthma. At this point, she has no further inpatient requirements for Pulmonary or Critical Care opinion, and I will sign off. Please call with additional questions or concerns through time. Job ID: [id number]
--- NOTE | 2018-12-07 06:27 | DIS ---
DATE OF ADMISSION: 12/02/2018 DATE OF DISCHARGE: 12/06/2018 CHIEF COMPLAINT/REASON FOR ADMISSION: Respiratory failure. PRINCIPAL DIAGNOSIS ON ADMISSION: Status asthmaticus. DISCHARGE DIAGNOSES: 1. Status asthmaticus with acute hypercapnic respiratory failure. 2. Hypokalemia. 3. Metabolic encephalopathy. 4. Leukocytosis. 5. History of seizure disorder. HOSPITAL COURSE: Ms. Holman is a 38-year-old female with a history of significant asthma with intermittent exacerbations. She has had hospitalizations and intubations in the past. She presented via EMS, intubated, unable to give history. Per review of records, EMS called to patient's home, upon arrival, noted that the patient in active respiratory distress. Received Solu-Medrol, magnesium, DuoNebs, epinephrine, transported to emergency department. Required intubation en route. OG tube placed, some emesis noted, admitted to the intensive care unit for further evaluation and care. Dr. Dorman from Pulmonary Critical Care saw and evaluated the patient. Chest x-ray showed no acute cardiopulmonary abnormality. No significant infiltrate. She was noted to have had 2 prior intubations in the past. Antibiotics not indicated. Ultimately, the patient extubated, transferred to medical floor, with ongoing interval improvement. On the day of discharge, no shortness of breath or chest discomfort. She continues to receive albuterol breathing treatments, and has shown interval stability, no new events overnight or this morning. She is afebrile. We discussed adding a proton pump inhibitor to her regimen as some acid reflux was noted. This will also be helpful as she undergoes steroid administration taper. She will remain on 40 mg p.o. daily of prednisone, with a goal of tapering the dose over a period of 1 to 2 weeks following that time. Additionally, she has been instructed to follow up with her ENT/Allergy physician as well as with Dr. Dorman from Pulmonary Critical Care. She did demonstrate understanding. Her aunt was at the bedside, also demonstrates good understanding. PHYSICAL EXAMINATION: On the day of discharge, she is awake and alert, breathing comfortably. No significant wheezing or rhonchi. Heart, regular rate and rhythm. Abdomen is soft and nontender. MEDICATIONS AT DISCHARGE: 1. Prednisone 40 mg p.o. once daily, anticipating 2 weeks of treatment with subsequent taper thereafter. 2. Albuterol sulfate 2.5 mg nebulizer q.4 hours p.r.n. shortness of breath. 3. Protonix 40 mg p.o. once daily, new medication. 4. Fluticasone 16 g nasal spray daily. 5. DuoNeb q.4 hourly p.r.n., the patient has at home. 6. Keppra 500 mg p.o. b.i.d. 7. Dulera 200/5 two puffs q.12 hours. 8. Singulair 10 mg p.o. q.p.m. 9. Tramadol 50 mg p.o. q.6 hours p.r.n. pain. She is currently quite comfortable. DIET: Regular. ACTIVITY: As tolerated. FOLLOW UP: As above, with ENT/Allergy, as well as Pulmonary with Dr. Dorman. TIME SPENT: Total time spent on discharge planning, 40 minutes. Job ID: [id number]
== END 2018-12-06 13:40 | disposition home or self-care (01) | DRG 208 ==
LOC: ERS 07:55 → CCU 09:53 → ONC 12-05 11:31
PROVIDERS: ADMIT Internal Medicine; ATTEND Internal Medicine
PROC: 0BH17EZ Insertion of Endotracheal Airway into Trachea, Via Natural or Artificial Opening (ICD-10-PCS; principal; 2018-12-02)
PROC: 5A1945Z Respiratory Ventilation, 24-96 Consecutive Hours (ICD-10-PCS; 2018-12-02)
DX: J96.02 Acute respiratory failure with hypercapnia (principal); G93.41 Metabolic encephalopathy; J45.51 Severe persistent asthma with (acute) exacerbation; R45.1 Restlessness and agitation; G40.909 Epilepsy, unspecified, not intractable, without status epilepticus; D72.829 Elevated white blood cell count, unspecified; E87.6 Hypokalemia; F19.10 Other psychoactive substance abuse, uncomplicated; R73.9 Hyperglycemia, unspecified; Z72.89 Other problems related to lifestyle; Z79.899 Other long term (current) drug therapy; Z79.52 Long term (current) use of systemic steroids; Z98.51 Tubal ligation status; Z88.8 Allergy status to other drugs, medicaments and biological substances
CPT/HCPCS: 31500; 36415; 36416; 51701; 71045; 80048; 80053; 80306; 80307; 81003; 81015; 81025; 82550; 82805; 83880; 84484; 85025; 93005; 94002; 94003; 94640; 94660; 96365; 96366; 96375; 99292; J1650; J1953; J2001; J2060; J2250; J2405; J2704; J2920; J3010; J3475; J7050; J7611; J7620

== ENCOUNTER 2019-01-03 18:37 | Emergency (ER) | payer OTHER ==
--- NOTE | 2019-01-03 19:26 | RAD ---
RADIOGRAPH CHEST ONE VIEW: DATE: 01/03/2019 HISTORY: 38-year-old female with chest pain FINDINGS: There are no airspace densities, pulmonary edema, pneumothorax, or cardiomegaly. The lateral costophr enic angles are sharp. IMPRESSION: No acute cardiopulmonary findings.
[2019-01-03 19:41] LABS: #Lymphocytes 1.8 thou/uL (1.20-3.40); #Monocytes 0.5 thou/uL (0.11-0.59); #Neutrophils 5.7 thou/uL (1.40-6.50); %Basophils 0.6 % (0.0-1.0); %Eosinophils 0.2 % (0.0-10.0); %Lymphocytes 22.9 % (21.0-51.0); %Monocytes 5.7 % (0.0-10.0); %Neutrophils 70.6 % (42.0-75.0); Hemoglobin 12.6 g/dL (12.0-16.0); Mean Corpuscular Hemoglobin 28.7 pg (27.0-31.0); Mean Corpuscular Volume 89.6 fL (78.0-98.0); Mean Platelet Volume 8.4 fL (7.4-10.4); Platelet Count 234 thou/uL (130-400); RBC Distribution Width 12.3 % (11.5-14.5); Red Blood Cell (RBC) Count 4.38 mill/uL (4.20-5.40)
[2019-01-03 19:47] LABS: BHCG - Serum Negative (NEGATIVE); Pregs Control Background? CLEAR/WHITE (CLR/WHITE); Pregs Control Bar Appear? YES (CONTROL BAR)
[2019-01-03 19:56] LABS: ALT (SGPT) 16 U/L (8-55); AST (SGOT) 14 U/L (5-34); Albumin 3.7 g/dL (3.5-5.0); Alkaline Phosphatase 73 U/L (40-150); Anion Gap 10 mmol/L (10-20); BUN (Urea Nitrogen) 6 mg/dL (7.0-18.7); Bilirubin, Total 0.3 mg/dL (0.2-1.2); Calc. Creatinine Clearance 0 mL/min (70-130); Carbon Dioxide 27 mmol/L (22-29); Chloride 106 mmol/L (98-107); Estimated GFR-MDRD Greater than 90; Globulin 2.7 g/dL (2.4-3.5); Glucose 96 mg/dL (70-105); Potassium 3.2 mmol/L (3.5-5.1); Protein, Total 6.4 g/dL (6.0-8.3); Sodium 140 mmol/L (136-145)
[2019-01-03] MEDS ORDERED: Ketorolac Tromethamine 30 MG/ML VIAL ONE (21:30)
--- NOTE | 2019-01-07 00:07 | EKG ---
Test Reason : CP Blood Pressure : / mmHG Vent. Rate : 084 BPM Atrial Rate : 084 BPM P-R Int : 158 ms QRS Dur : 078 ms QT Int : 374 ms P-R-T Axes : 055 -18 024 degrees QTc Int : 441 ms Normal sinus rhythm Possible Left atrial enlargement No STEMI Borderline ECG Confirmed by JACOB IBRAHIM M.D. ([id number]), scientific editor WALESKA WILCOX ([id number] on 01/07/2019 12:06:42 AM Referred By: Confirmed By:JACOB IBRAHIM M.D.
== END 2019-01-03 21:40 | disposition home or self-care (01) ==
LOC: ERS 18:37
DX: J18.9 Pneumonia, unspecified organism (principal); J45.909 Unspecified asthma, uncomplicated; Z79.51 Long term (current) use of inhaled steroids; Z79.899 Other long term (current) drug therapy
CPT/HCPCS: 36415; 71045; 80053; 84484; 84703; 85025; 85379; 93005; 96372; J1885

== ENCOUNTER 2019-05-05 03:50 | Emergency (ER) | payer OTHER ==
[2019-05-05] MEDS ORDERED: Ampicillin 250 MG VIAL ONE (04:09)
[2019-05-05] MEDS ORDERED: Aspirin Chewable 81 MG TAB ONE (04:09)
[2019-05-05 04:27] LABS: #Basophils 0.1 thou/uL (0.0-0.2); #Eosinphils 2.7 thou/uL (0.0-0.7); #Lymphocytes 2.4 thou/uL (1.20-3.40); #Monocytes 0.6 thou/uL (0.11-0.59); #Neutrophils 7.8 thou/uL (1.40-6.50); %Basophils 0.6 % (0.0-1.0); %Eosinophils 20.1 % (0.0-10.0); %Lymphocytes 17.6 % (21.0-51.0); %Monocytes 4.2 % (0.0-10.0); %Neutrophils 57.6 % (42.0-75.0); Mean Corpuscular HGB CONC 32.9 g/dL (32.0-36.0); Mean Corpuscular Hemoglobin 29.7 pg (27.0-31.0); Mean Corpuscular Volume 90.3 fL (78.0-98.0); Platelet Count 235 thou/uL (130-400); RBC Distribution Width 12.8 % (11.5-14.5); Red Blood Cell (RBC) Count 4.39 mill/uL (4.20-5.40); White Blood Cell (WBC) Count 13.5 thou/uL (4.8-10.8)
[2019-05-05 04:49] LABS: ALT (SGPT) 10 U/L (8-55); AST (SGOT) 17 U/L (5-34); Albumin 3.8 g/dL (3.5-5.0); Alkaline Phosphatase 74 U/L (40-150); Anion Gap 12 mmol/L (10-20); BUN (Urea Nitrogen) 7 mg/dL (7.0-18.7); Bilirubin, Total 0.5 mg/dL (0.2-1.2); Calc. Creatinine Clearance 0 mL/min (70-130); Calcium 9.2 mg/dL (7.8-10.44); Carbon Dioxide 23 mmol/L (22-29); Chloride 108 mmol/L (98-107); Estimated GFR-MDRD Greater than 90; Glucose 102 mg/dL (70-105); Potassium 3.9 mmol/L (3.5-5.1); Protein, Total 6.8 g/dL (6.0-8.3); Sodium 139 mmol/L (136-145)
--- NOTE | 2019-05-05 09:38 | RAD ---
EXAM: Chest one view: HISTORY: Cough, asthma exacerbation COMPARISON: 01/03/2019 FINDINGS: Heart size: Within normal limits. Lungs: Clear of acute process. No evidence for pneumonia, pleural effusion, acute edema, or pneumothorax, or other significant acute process. IMPRESSION: No significant acute intrathoracic disease.
== END 2019-05-05 08:45 | disposition home or self-care (01) ==
LOC: ERS 03:50
DX: R07.89 Other chest pain (principal); R05 Cough; J45.909 Unspecified asthma, uncomplicated; Z79.899 Other long term (current) drug therapy; Z79.51 Long term (current) use of inhaled steroids
CPT/HCPCS: 36415; 71045; 80053; 84484; 85025; 93005; 94640; J0290; J7620

== ENCOUNTER 2019-07-10 09:02 | Emergency (ER) | payer OTHER | END 2019-07-10 10:16 | disposition home or self-care (01) | LOC: ERS 09:02 | DX: K42.9 Umbilical hernia without obstruction or gangrene (principal); J45.909 Unspecified asthma, uncomplicated; Z79.899 Other long term (current) drug therapy; Z79.51 Long term (current) use of inhaled steroids | CPT/HCPCS: 99283 ==

== ENCOUNTER 2019-07-24 08:33 | Day surgery (SDC) | payer OTHER ==
[2019-07-23 09:31] VITALS: BMI 29.2
[2019-07-24 09:47] LABS: #Basophils 0.1 thou/uL (0.0-0.2); #Eosinphils 1.6 thou/uL (0.0-0.7); #Lymphocytes 2.2 thou/uL (1.20-3.40); #Monocytes 0.5 thou/uL (0.11-0.59); %Basophils 0.6 % (0.0-1.0); %Eosinophils 16.9 % (0.0-10.0); %Lymphocytes 23.7 % (21.0-51.0); %Monocytes 5.2 % (0.0-10.0); %Neutrophils 53.5 % (42.0-75.0); Hemoglobin 12.7 g/dL (12.0-16.0); Mean Corpuscular HGB CONC 32.6 g/dL (32.0-36.0); Mean Platelet Volume 7.9 fL (7.4-10.4); Platelet Count 231 thou/uL (130-400); RBC Distribution Width 12.9 % (11.5-14.5); Red Blood Cell (RBC) Count 4.23 mill/uL (4.20-5.40); White Blood Cell (WBC) Count 9.3 thou/uL (4.8-10.8)
[2019-07-24 10:10] LABS: Anion Gap 9 mmol/L (10-20); BUN (Urea Nitrogen) 7 mg/dL (7.0-18.7); Calc. Creatinine Clearance 110 mL/min (70-130); Calcium 8.8 mg/dL (7.8-10.44); Carbon Dioxide 27 mmol/L (22-29); Chloride 105 mmol/L (98-107); Estimated GFR-MDRD Greater than 90; Glucose 91 mg/dL (70-105); Potassium 3.7 mmol/L (3.5-5.1); Sodium 137 mmol/L (136-145)
[2019-07-24] MEDS ORDERED: Bupivacaine/Epinephrine 0.5% 10 ML VIAL ONE (10:39)
[2019-07-24] MEDS ORDERED: PROPOFOL 200 MG/20 ML VIAL ONE (10:52)
[2019-07-24] MEDS ORDERED: Ondansetron PF 4 MG/2 ML Vial ONE (10:52)
[2019-07-24] MEDS ORDERED: Glycopyrrolate 0.2 MG/ML 5 ML SYRINGE ONE (10:52)
[2019-07-24] MEDS ORDERED: Lidocaine 1% PF 5 ML VIAL ONE (10:52)
[2019-07-24] MEDS ORDERED: Dexamethasone 20 MG/5 ML VIAL ONE (10:52)
[2019-07-24] MEDS ORDERED: Fentanyl 100 MCG/2 ML VIAL ONE ×3 (11:01→12:52)
[2019-07-24] MEDS ORDERED: Albuterol Sulfate HFA (OR ONLY) ONE (11:29)
[2019-07-24] MEDS ORDERED: SUGAMMADEX SODIUM 200 MG/2 ML VIAL ONE (11:57)
[2019-07-24] MEDS ORDERED: Meperidine HCl/PF 25 MG/ML VIAL ONE (12:19)
--- NOTE | 2019-07-24 12:28 | OP ---
DATE OF PROCEDURE: 07/24/2019 PREOPERATIVE DIAGNOSIS: Umbilical hernia. POSTOPERATIVE DIAGNOSIS: Umbilical hernia. PROCEDURE PERFORMED: Umbilical hernia with mesh. ANESTHESIA: General. ESTIMATED BLOOD LOSS: Minimal. COMPLICATIONS: None. FINDINGS: The patient had a stalk like effect from the stretched out umbilical skin. This was excised. DESCRIPTION OF PROCEDURE: The patient was taken to the operating room and laid supine on the operating room table. After general anesthetic was obtained, the abdomen was prepped and draped in a sterile fashion. A transverse curved elliptical incision was used to excise the redundant periumbilical skin just above the umbilicus. The omental fat was reduced back into the abdominal cavity. Edges of the defect were freshened. It was a larger defect. A medium Ventralex ST mesh was brought into the sterile field and placed in an underlay. The skirt of the mesh was sewn via U-stitch of permanent braided suture superiorly and inferiorly and on the lateral sides. The fascia was closed over the mesh using same suture. The wound was irrigated. Local anesthetic was applied. The wound was closed using 3-0 Vicryl, 4-0 Monocryl, and Dermabond. The patient was sent to Recovery in stable condition. All instrument counts, needle counts, and lap counts were correct. Job ID: [id number]
[2019-07-24] MEDS ORDERED: HYDROcodone/Acetaminophen 5/325 mg Tablet ONE (14:31)
== END 2019-07-24 14:48 | disposition home or self-care (01) ==
LOC: SDC 08:33
PROVIDERS: ATTEND Surgery
PROC: 0WUF0JZ Supplement Abdominal Wall with Synthetic Substitute, Open Approach (ICD-10-PCS; principal; 2019-07-24)
DX: K42.9 Umbilical hernia without obstruction or gangrene (principal); J45.50 Severe persistent asthma, uncomplicated; Z88.8 Allergy status to other drugs, medicaments and biological substances; Z91.040 Latex allergy status; Z79.899 Other long term (current) drug therapy
CPT/HCPCS: 36415; 80048; 85025; J0690; J1100; J2001; J2175; J2405; J2704; J3010; J3490; J7620

== ENCOUNTER 2019-08-08 04:32 | Observation (INO) | payer OTHER ==
[2019-08-08] MEDS ORDERED: methylPREDNISolone Sod Succ/PF 125 MG/2 ML VIAL ONE (05:31)
[2019-08-08] MEDS ORDERED: Magnesium 2 GM/50 ML 2 GM in Premix Bag 1 BAG IVPB SCH (09:30)
[2019-08-08] MEDS: Magnesium 2 GM/50 ML BAG (IN WATER) ONE ×2 (12:10→13:15)
[2019-08-08 13:14] VITALS: BMI 30.7
--- NOTE | 2019-08-08 13:47 | PDOC.FPRHP ---
- History of Present Illness Chief Complaint: SOB History of Present Illness: Pt is a 39yo F with hx of severe persistent asthma presenting today after 2wk hx of URI sx with worsened SOB. She reports multiple asthma exacerbations requiring intubation, last one 6 months ago. She normally sees an allergy and asthma specialist who gives her injection of Dupilumab. She has missed her last two injections. She is also established with revenue settlements administrator, Dr. Dorman. She reports using rescue inhaler 5-6xdaily and multiple nighttime awakenings with cough. She received Duonebs x6 in ED, IV solumedrol. She currently reports improved sx but still not at baseline. - Allergies/Adverse Reactions Allergies Allergy/AdvReac Type Severity Reaction Status Date / Time adhesive Allergy Verified 07/23/19 09:31 guaifenesin [From Robitussin] Allergy Rash Verified 07/23/19 09:31 - Home Medications Medication Instructions Recorded Confirmed Type Montelukast Sodium [Singulair] 10 mg PO QPM 01/21/16 08/08/19 History predniSONE 20 mg PO QAM-WM PRN 07/23/19 08/08/19 History Albuterol Sulfate [Proair HFA] 2 puff INH Q6HR PRN 08/08/19 08/08/19 History Ipratropium/Albuterol Sulfate 3 ml NEB Q6H PRN neb 08/09/19 Rx [DuoNeb] Mometasone 100 MCG [Asmanex HFA 1 puff INH BID-RT #1 inh 08/09/19 Rx 100 mcg] Montelukast Sodium [Singulair] 10 mg PO QPM tab 08/09/19 Rx predniSONE 20 mg PO QAM-WM #2 tab 08/09/19 Rx predniSONE 20 mg PO QAM-WM #3 tab 08/09/19 Rx predniSONE 40 mg PO QAM-WM #6 tab 08/09/19 Rx predniSONE 60 mg PO QAM-WM #9 tab 08/09/19 Rx - History PMHx: Asthma Seasonal Allergies GERD Hx of Seizure DO PSHx: not pertinent FHx: HTN, CAD Social: Denies alcohol, drug, tobacco use. - Review of Systems General: denies: fever/chills, night sweats, fatigue Eyes: denies: eye pain, vision changes ENT: reports: nasal congestion, rhinorrhea Respiratory: reports: cough, shortness of breath. denies: congestion Cardiovascular: denies: chest pain, palpitation, edema, paroxysmal nocturnal dyspnea, orthopnea Gastrointestinal: reports: other (reports recent umbilical hernia repair and ttp along surgical site.). denies: nausea, vomiting, diarrhea, constipation, abdominal pain, GI bleeding Genitourinary: denies: incontinence, dysuria, polyuria, discharge Skin: denies: rashes Musculoskeletal: denies: pain, stiffness, swelling Neurological: denies: syncope, seizure Psychological: denies: anxiety, depression - Vital signs BP: 110/66 HR: 96 RR: 22 Tmax: 98.3 Pox: 98% on RA Wt: 76kg - Physical Exam Constitutional: NAD, awake, alert and oriented, well developed HEENT: normocephalic and atraumatic, EOMI, grossly normal vision, grossly normal hearing, MMM, oropharynx clear -HEENT: nasal congestion noted Neck: supple, no LAD Heart: RRR, normal S1/S2, no murmurs/rubs/gallops, pulses present, no edema Lungs: no respiratory distress, no rales/rhonchi, no wheezing, no retractions -Lungs: poor air movement Abdomen: soft, non-tender, bowel sounds present, no masses/distention -Abdomen: 2-3cm healing umbilical hernia repair surgical incision site, c, d, i Musculoskeletal: normal tone, ROM grossly normal Neurological: no focal deficit Heme/Lymphatic: no unusual bruising or bleeding Psychiatric: normal mood and affect, intact recent and remote memory FMR H&P: Results - Labs Result Diagrams: 08/08/19 09:30 08/08/19 09:30 FMR H&P: A/P - Problem List (1) Status asthmaticus Status: Acute Code(s): J45.902 - UNSPECIFIED ASTHMA WITH STATUS ASTHMATICUS (2) Seasonal allergies Status: Acute Code(s): J30.2 - OTHER SEASONAL ALLERGIC RHINITIS (3) Hx of seizure disorder Status: Acute Code(s): Z86.69 - PERSONAL HISTORY OF DIS OF THE NERVOUS SYS AND SENSE ORGANS - Plan Status Asthamticus: S/p duonebs x6 and IV steroids. Much improved although not at baseline. With hx of multiple severe asthma attacks requiring intubations, will place in telemetry for observation. - cont duonebs q4h, q2h prn - IV Mg for additional respiratory improvement - mucinex for congestion - Plan for long steroid taper over 2 wks. Start 60mg PO prednisone tomorrow. - Will need daily ICS- will order flovent. - Discussed importance of f/u with specialists. Hx of Seizure DO: - not currently on medication, was taken off - no recent seizure hx - continue to monitor. Seasonal Allergies: - continue home singulair. Dispo: likely <48h. FMR H&P: Upper Level - Plan Date/Time: 08/08/19 9520 I, [], have evaluated this patient and agree with findings/plan as outlined by validation intern resident. Pertinent changes/additions are listed here. Addendum - Attending - Attending Attestation Date/Time: 08/09/19 1973 I personally evaluated the patient and discussed the management with Dr. Martini yesterday morning. I agree with the History, Examination, Assessment and Plan documented above with any addition or exceptions noted below.
[2019-08-08 15:33] LABS: #Lymphocytes 0.5 thou/uL (1.20-3.40); #Monocytes 0.1 thou/uL (0.11-0.59); #Neutrophils 9.3 thou/uL (1.40-6.50); %Basophils 0.1 % (0.0-1.0); %Eosinophils 0.3 % (0.0-10.0); %Monocytes 0.7 % (0.0-10.0); %Neutrophils 93.9 % (42.0-75.0); Hemoglobin 13.1 g/dL (12.0-16.0); Mean Corpuscular HGB CONC 32.2 g/dL (32.0-36.0); Mean Corpuscular Hemoglobin 29.1 pg (27.0-31.0); Mean Corpuscular Volume 90.3 fL (78.0-98.0); Mean Platelet Volume 8.3 fL (7.4-10.4); Platelet Count 288 thou/uL (130-400); RBC Distribution Width 12.8 % (11.5-14.5); Red Blood Cell (RBC) Count 4.49 mill/uL (4.20-5.40); White Blood Cell (WBC) Count 9.9 thou/uL (4.8-10.8)
[2019-08-08 17:13] LABS: Anion Gap 13 mmol/L (10-20); BUN (Urea Nitrogen) 7 mg/dL (7.0-18.7); Calc. Creatinine Clearance 120 mL/min (70-130); Carbon Dioxide 25 mmol/L (22-29); Chloride 104 mmol/L (98-107); Estimated GFR-MDRD Greater than 90; Glucose 167 mg/dL (70-105); Potassium 3.5 mmol/L (3.5-5.1); Sodium 138 mmol/L (136-145)
[2019-08-08 17:19] LABS: Anion Gap 14 mmol/L (10-20); Carbon Dioxide 27 mmol/L (22-29); Chloride 100 mmol/L (98-107); Potassium 5.1 mmol/L (3.5-5.1); Sodium 136 mmol/L (136-145)
[2019-08-08 17:20] LABS: ALT (SGPT) 18 U/L (8-55); AST (SGOT) 39 U/L (5-34); Albumin 4.2 g/dL (3.5-5.0); Alkaline Phosphatase 87 U/L (40-110); BUN (Urea Nitrogen) 8 mg/dL (7.0-18.7); Bilirubin, Total 0.4 mg/dL (0.2-1.2); Calc. Creatinine Clearance 98 mL/min (70-130); Calcium 9.3 mg/dL (7.8-10.44); Estimated GFR-MDRD 81; Globulin 4.6 g/dL (2.4-3.5); Glucose 97 mg/dL (70-105); Protein, Total 8.8 g/dL (6.0-8.3)
[2019-08-08 18:47] LABS: Mean Corpuscular Volume 89.9 fL (78.0-98.0); Red Blood Cell (RBC) Count 4.76 mill/uL (4.20-5.40); White Blood Cell (WBC) Count 14.1 thou/uL (4.8-10.8)
[2019-08-08 18:48] LABS: #Basophils 0.1 thou/uL (0.0-0.2); #Lymphocytes 3.3 thou/uL (1.20-3.40); #Monocytes 0.5 thou/uL (0.11-0.59); #Neutrophils 8.3 thou/uL (1.40-6.50); %Basophils 0.4 % (0.0-1.0); %Eosinophils 14.2 % (0.0-10.0); %Lymphocytes 23.1 % (21.0-51.0); %Monocytes 3.5 % (0.0-10.0); %Neutrophils 58.9 % (42.0-75.0); Mean Corpuscular HGB CONC 32.7 g/dL (32.0-36.0); Mean Corpuscular Hemoglobin 29.4 pg (27.0-31.0); Mean Platelet Volume 8.4 fL (7.4-10.4); Platelet Count 315 thou/uL (130-400); RBC Distribution Width 13.1 % (11.5-14.5)
[2019-08-08] MEDS: Mometasone 100 MCG HFA INHALER INH SCH (19:00)
--- NOTE | 2019-08-08 20:09 | RAD ---
CHEST ONE VIEW: 08/08/19 HISTORY: Asthma. COMPARISON: 05/05/19. FINDINGS: The exam is on the taken list and submitted for official interpretation 08/08/19 at 8:06 p.m. FINDINGS: Lungs and pleural spaces are clear. Normal cardiac silhouette. IMPRESSION: No acute cardiopulmonary process. POS: OFF
[2019-08-08] MEDS ORDERED: Montelukast Sodium 10 mg Tablet PO SCH (21:00)
[2019-08-08 22:09] LABS: Lactic Acid 3.3 mmol/L (0.5-2.2)
[2019-08-09] MEDS ORDERED: Benzonatate 100 MG CAP PO PRN (00:59)
[2019-08-09] MEDS ORDERED: Melatonin 3 MG TAB PO SCH (01:30)
--- NOTE | 2019-08-09 05:28 | PDOC.FM ---
- Subjective Subjective: Akbar is doing well this morning. She states she still has a persistent cough. However, she did not get prn nebs last night. She states she hasn't seen her digital marketing coordinator or director of cardiology in quite some time. - Objective MAR Reviewed: Yes Vital Signs & Weight: Vital Signs (12 hours) Temp Pulse Resp BP Pulse Ox 08/09/19 04:59 97.9 F 82 15 115/68 98 08/09/19 00:27 102 H 20 96 08/08/19 23:05 98.3 F 84 16 119/52 L 100 08/08/19 18:59 98 20 96 08/08/19 18:32 98.5 F 100 16 120/65 96 Weight Weight 76.612 kg I&O: 08/07/19 08/08/19 08/09/19 06:59 06:59 06:59 Intake Total 2170 Balance 2170 Result Diagrams: 08/08/19 09:30 08/08/19 09:30 Phys Exam - Physical Examination Constitutional: NAD HEENT: PERRLA, moist MMs, sclera anicteric Neck: supple, full ROM Good air movement, expiratory wheezes present. Cardiovascular: RRR, no significant murmur, no rub Gastrointestinal: soft, non-tender, no distention, positive bowel sounds Musculoskeletal: no edema, pulses present Neurological: non-focal, normal sensation, moves all 4 limbs Psychiatric: normal affect, A&O x 3 Skin: no rash, normal turgor, cap refill <2 seconds Dx/Plan (1) GERD (gastroesophageal reflux disease) Code(s): K21.9 - GASTRO-ESOPHAGEAL REFLUX DISEASE WITHOUT ESOPHAGITIS Status: Acute (2) Hx of seizure disorder Code(s): Z86.69 - PERSONAL HISTORY OF DIS OF THE NERVOUS SYS AND SENSE ORGANS Status: Acute (3) Seasonal allergies Code(s): J30.2 - OTHER SEASONAL ALLERGIC RHINITIS Status: Acute (4) Status asthmaticus Code(s): J45.902 - UNSPECIFIED ASTHMA WITH STATUS ASTHMATICUS Status: Acute - Plan Plan: Status Asthamticus Severe history of asthma, requiring intubation (x3) in the past. - cont duonebs - Plan for long steroid taper over 2 wks. Start 60mg PO prednisone tomorrow. - Will need daily ICS - Will need f/u with director of cardiology and digital marketing coordinator on d/c Hx of Seizure Disorder - not currently on medication, was taken off - no recent seizure hx - continue to monitor Seasonal Allergies - continue home singulair. Dispo: Stable, likely <48h. Code: Full Addendum - Attending - Attending Attestation Date/Time: 08/09/19 9980 I personally evaluated the patient and discussed the management with Dr. Garcia. I agree with the History, Examination, Assessment and Plan documented above with any addition or exceptions noted below.
[2019-08-09 07:59] VITALS: BP 132/68; TEMP 98
[2019-08-09] MEDS ORDERED: predniSONE 20 MG TAB PO SCH (08:00)
[2019-08-09] MEDS: Mometasone 100 MCG HFA INHALER INH SCH (08:06)
--- NOTE | 2019-08-10 07:05 | DIS ---
DATE OF ADMISSION: 08/08/2019 DATE OF DISCHARGE: 08/09/2019 RESIDENT: Joanne Garcia MD ADMITTING ATTENDING: Braxton Ortega MD DISCHARGE ATTENDING: Braxton Ortega MD. CONSULTS: None. PROCEDURES: None. PRIMARY DIAGNOSIS: Acute asthma exacerbation. SECONDARY DIAGNOSIS: Allergy. DISCHARGE MEDICATIONS: 1. Albuterol as needed. 2. Singulair daily. 3. Prednisone taper. 4. Combivent. 5. Asmanex. Discontinued medication: None. HISTORY OF PRESENT ILLNESS/HOSPITAL COURSE: Akbar is a 39-year-old with a history of severe persistent asthma, presenting for a 2-week history of upper respiratory infection symptoms with worsening shortness of breath and wheezing. She has had multiple asthma exacerbations that have required intubation, the last being 6 months ago. She had an allergy and an asthma specialist to give her an injection of dupilumab. She had missed the last 2 injections. She had also established with Dr. Dorman, membership sales advisor. She reports that she has been using her rescue inhaler multiple times per day and waking up at night short of breath. On admission, she was tachypneic at 22 and saturating 98% on room air. She had nasal congestion and poor air movement with wheezing. Overnight, she received scheduled DuoNeb and IV steroids and improved well overnight. She also received IV magnesium for respiratory symptoms. She was discharged with a long steroid taper for 2 weeks of prednisone and a daily inhaled corticosteroid. She was instructed to follow up with her resident physician in radiology/asthma specialist promptly along with her membership sales advisor, Dr. Dorman. DISPOSITION: Stable. DISCHARGE INSTRUCTIONS: 1. Location: Home. 2. Diet: Regular. 3. Activity: Ad florencia. 4. Followup: Follow up with primary care physician, Dr. Aydin Perez; follow up with Dr. Dorman, membership sales advisor; follow up with Allergy and Asthma specialist. Job ID: [id number]
== END 2019-08-09 12:16 | disposition home or self-care (01) ==
LOC: ERS 04:32 → 2SW 06:09
PROVIDERS: ADMIT Family Medicine; ATTEND Family Medicine
DX: J45.51 Severe persistent asthma with (acute) exacerbation (principal); J45.52 Severe persistent asthma with status asthmaticus; K21.9 Gastro-esophageal reflux disease without esophagitis; J30.2 Other seasonal allergic rhinitis; Z79.899 Other long term (current) drug therapy; Z88.8 Allergy status to other drugs, medicaments and biological substances; Z91.048 Other nonmedicinal substance allergy status
CPT/HCPCS: 36415; 71045; 80048; 83605; 85025; 87804; 94640; 96365; 96375; 99285; G0378; J2930; J3475; J7512; J7620

== ENCOUNTER 2019-10-01 23:37 | Emergency (ER) | payer OTHER ==
[2019-10-01] MEDS ORDERED: Acetaminophen 500 MG TAB ONE (23:58)
[2019-10-02] MEDS ORDERED: predniSONE 20 MG TAB ONE (01:13)
[2019-10-02] MEDS ORDERED: Ibuprofen 800 MG TAB ONE (01:13)
[2019-10-02 01:22] LABS: #Eosinphils 1.2 thou/uL (0.0-0.7); #Monocytes 0.5 thou/uL (0.11-0.59); #Neutrophils 7.6 thou/uL (1.40-6.50); %Basophils 0.4 % (0.0-1.0); %Eosinophils 11.6 % (0.0-10.0); %Lymphocytes 9.6 % (21.0-51.0); %Monocytes 4.4 % (0.0-10.0); %Neutrophils 74.1 % (42.0-75.0); Hemoglobin 12.1 g/dL (12.0-16.0); Mean Corpuscular HGB CONC 32.2 g/dL (32.0-36.0); Mean Corpuscular Hemoglobin 28.9 pg (27.0-31.0); Mean Corpuscular Volume 89.8 fL (78.0-98.0); Mean Platelet Volume 8.7 fL (7.4-10.4); Platelet Count 238 thou/uL (130-400); RBC Distribution Width 12.8 % (11.5-14.5); White Blood Cell (WBC) Count 10.3 thou/uL (4.8-10.8)
[2019-10-02 01:44] LABS: ALT (SGPT) 7 U/L (8-55); AST (SGOT) 13 U/L (5-34); Albumin 3.8 g/dL (3.5-5.0); Alkaline Phosphatase 81 U/L (40-110); Anion Gap 10 mmol/L (10-20); BUN (Urea Nitrogen) Less than 4 mg/dL (7.0-18.7); Bilirubin, Total 0.5 mg/dL (0.2-1.2); Calc. Creatinine Clearance 0 mL/min (70-130); Calcium 8.9 mg/dL (7.8-10.44); Carbon Dioxide 27 mmol/L (22-29); Chloride 105 mmol/L (98-107); Estimated GFR-MDRD Greater than 90; Globulin 2.9 g/dL (2.4-3.5); Glucose 107 mg/dL (70-105); Protein, Total 6.7 g/dL (6.0-8.3); Sodium 139 mmol/L (136-145)
--- NOTE | 2019-10-02 07:54 | RAD ---
RADIOGRAPH CHEST 2 VIEWS: HISTORY: A 39-year-old female with cough. FINDINGS: There is no air space density, pulmonary edema, pleural effusion, pneumothorax, or cardiomegaly. IMPRESSION: No acute cardiopulmonary findings. jn [] POS: CET
== END 2019-10-02 02:18 | disposition home or self-care (01) ==
LOC: ERS 23:37
DX: B34.9 Viral infection, unspecified (principal); J45.909 Unspecified asthma, uncomplicated; Z79.51 Long term (current) use of inhaled steroids
CPT/HCPCS: 36415; 71046; 80053; 83605; 85025; 87804; 94640; J7512; J7620

== ENCOUNTER 2019-10-23 14:52 | Emergency (ER) | payer OTHER ==
[~2019-10-23 14:52] MED LIST: Iopamidol-370 76% 500 ML 1 ML ONE
[2019-10-23 15:51] LABS: #Basophils 0.1 thou/uL (0.0-0.2); #Eosinphils 1.5 thou/uL (0.0-0.7); #Monocytes 0.4 thou/uL (0.11-0.59); #Neutrophils 5.1 thou/uL (1.40-6.50); %Basophils 0.9 % (0.0-1.0); %Eosinophils 16.6 % (0.0-10.0); %Lymphocytes 21.8 % (21.0-51.0); %Neutrophils 56.7 % (42.0-75.0); Hemoglobin 12.3 g/dL (12.0-16.0); Mean Corpuscular HGB CONC 32.5 g/dL (32.0-36.0); Mean Corpuscular Hemoglobin 29.6 pg (27.0-31.0); Mean Corpuscular Volume 91.4 fL (78.0-98.0); Mean Platelet Volume 8.4 fL (7.4-10.4); Platelet Count 244 thou/uL (130-400); RBC Distribution Width 13.2 % (11.5-14.5); Red Blood Cell (RBC) Count 4.15 mill/uL (4.20-5.40)
[2019-10-23 16:13] LABS: ALT (SGPT) 10 U/L (8-55); AST (SGOT) 13 U/L (5-34); Albumin 3.9 g/dL (3.5-5.0); Alkaline Phosphatase 82 U/L (40-110); Anion Gap 10 mmol/L (10-20); BUN (Urea Nitrogen) 6 mg/dL (7.0-18.7); Bilirubin, Total 0.5 mg/dL (0.2-1.2); Calc. Creatinine Clearance 0 mL/min (70-130); Carbon Dioxide 30 mmol/L (22-29); Chloride 104 mmol/L (98-107); Estimated GFR-MDRD Greater than 90; Globulin 2.9 g/dL (2.4-3.5); Glucose 83 mg/dL (70-105); Lipase 13 U/L (8-78); Potassium 3.7 mmol/L (3.5-5.1); Protein, Total 6.8 g/dL (6.0-8.3); Sodium 140 mmol/L (136-145)
[2019-10-23] MEDS ORDERED: Ketorolac Tromethamine 30 MG/ML VIAL ONE (17:19)
[2019-10-23 17:41] LABS: BHCG - Serum Negative (NEGATIVE); Pregs Control Background? CLEAR/WHITE (CLR/WHITE); Pregs Control Bar Appear? YES (CONTROL BAR)
[2019-10-23 18:01] LABS: Bilirubin Negative (Negative); Blood, Urine Negative (Negative); Clarity Clear (Clear); Glucose, Urine (Dipstick) Normal (Negative); Leukocyte Negative Leu/uL (Negative); Nitrite Negative (Negative); Protein, Urine (Dipstick) Negative (Neg-Trace); Urobilinogen Normal mg/dL (Less than 2)
[2019-10-23 18:05] LABS: Pregnancy Test - Urine (BHCG) Negative (Negative); Pregu Control Background? CLEAR/WHITE (CLR/WHITE); Pregu Control Bar Appear? YES (CONTROL BAR); Specific Gravity 1.008 (1.002-1.036)
--- NOTE | 2019-10-23 18:56 | CT ---
CT ABDOMEN AND PELVIS PERFORMED WITH CONTRAST ENHANCEMENT: 10/23/19 HISTORY: Abdominal pain. Palpable mass over umbilical region. COMPARISON: A 09/01/14 exam. Review is also made of a 05/21/14 study. The lung bases are clear of any infiltrates. Two lesions are identified within the left lobe of the liver. One near the dome of the liver. It is 1 2 mm in size. It is hypodense and felt to be fairly similar to the previous exam. The second which is in the lateral segment of the left lobe, adjacent to the falciform ligament is much more evident on the current study. I am not certain that it is significantly changed in appearance but shows more pro minent enhancement than it did no either the two prior exams. It measures approximately 2.6 cm in siz e. It could potentially be a hemangioma, incompletely characterized on this exam. The spleen, pancrea s and gallbladder regions are unremarkable. Right and left adrenal glands and right and left kidneys are normal in appearance. There is no signif icant periaortic or mesenteric adenopathy. CT OF PELVIS PERFORMED WITH CONTRAST ENHANCEMENT: On the previous examination a fat containing paraumbilical hernia was noted. There is now what appear s to be some scarring in this region. This is probably on the basis of a repair. The uterus is enlarg ed. It is very heterogeneous in appearance. It appears to be related to uterine fibroids. The larger of which is in the 5 cm range. These appear more prominent than on the prior exam. It is probably jus t related to enlarging fibroids. There is no pelvic lymphadenopathy demonstrated. IMPRESSION: 1. Enlarged uterus with what appears to be large uterine fibroids in the fundus region. These ar e larger than on the previous 2013 exam. Further characterization [facility] would be suggested. There is somewhat more prominent enhancement than typically seen with fibroids. Probable postoperative changes related to an umbilical hernia repair. 2. Two left lobe liver lesions, one near the dome of the liver is stable. The second is probably stable in size which shows much more prominent enhancement on this study which may just be related t o the phase of this examination but still incompletely characterized. Probably a hemangioma. POS: LILA
== END 2019-10-23 18:53 | disposition home or self-care (01) ==
LOC: ERS 14:52
DX: D25.9 Leiomyoma of uterus, unspecified (principal); D18.09 Hemangioma of other sites; J45.909 Unspecified asthma, uncomplicated
CPT/HCPCS: 36415; 74177; 80053; 81003; 81025; 83690; 84703; 85025; 96361; 96374; J1885; Q9967

== ENCOUNTER 2019-11-15 15:18 | Outpatient (CLI) | payer OTHER | END 2019-11-15 15:19 | disposition home or self-care (01) | LOC: CTENTCT 15:18 | PROVIDERS: ATTEND Otolaryngology Plastic Surgery within the Head & Neck | DX: J32.9 Chronic sinusitis, unspecified (principal) | CPT/HCPCS: 70486 ==

== ENCOUNTER 2020-01-21 06:37 | Outpatient (CLI) | payer OTHER ==
[2020-01-21 08:49] VITALS: BMI 30.2
[2020-01-21 10:43] LABS: BHCG - Serum Negative (NEGATIVE); Pregs Control Background? CLEAR/WHITE (CLR/WHITE); Pregs Control Bar Appear? YES (CONTROL BAR)
[2020-01-21 17:36] LABS: SARS-CoV-2 MS2 Positive; SARS-CoV-2 N Gene Negative; SARS-CoV-2 S Gene Negative; SARS-CoV-2 orf1ab Negative
== END 2020-01-21 06:38 | disposition home or self-care (01) ==
LOC: LABBT 06:37
PROVIDERS: ATTEND Otolaryngology Plastic Surgery within the Head & Neck
DX: Z01.812 Encounter for preprocedural laboratory examination (principal); Z11.59 Encounter for screening for other viral diseases; J32.9 Chronic sinusitis, unspecified; J30.9 Allergic rhinitis, unspecified; J34.3 Hypertrophy of nasal turbinates; J33.9 Nasal polyp, unspecified; J34.2 Deviated nasal septum; J32.4 Chronic pansinusitis
CPT/HCPCS: 84703; 85014; 87635; U0003

== ENCOUNTER 2020-07-16 15:20 | Emergency (ER) | payer OTHER ==
[2020-07-16] MEDS ORDERED: predniSONE 20 MG TAB ONE (15:49)
[2020-07-16] MEDS ORDERED: Albuterol 200 PUFF (6.7GM INHALER) ONE (15:49)
--- NOTE | 2020-07-16 16:05 | RAD ---
XR Chest 1 View Portable HISTORY: Chest pain and cough COMPARISON: 10/02/2019 FINDINGS: The heart size is normal. The lungs are well expanded without focal areas of consolidation, pneumothorax or pleural effusions. IMPRESSION: No radiographic evidence of acute cardiopulmonary process.
[2020-07-16 16:19] LABS: #Basophils 0.1 thou/uL (0.0-0.2); #Eosinphils 1.3 thou/uL (0.0-0.7); #Lymphocytes 2.5 thou/uL (1.20-3.40); #Monocytes 0.6 thou/uL (0.11-0.59); #Neutrophils 5.9 thou/uL (1.40-6.50); %Basophils 0.7 % (0.0-1.0); %Eosinophils 12.3 % (0.0-10.0); %Lymphocytes 24.1 % (21.0-51.0); %Monocytes 6.1 % (0.0-10.0); %Neutrophils 56.8 % (42.0-75.0); Mean Corpuscular HGB CONC 30.5 g/dL (32.0-36.0); Mean Corpuscular Hemoglobin 24.9 pg (27.0-31.0); Mean Corpuscular Volume 81.7 fL (78.0-98.0); Mean Platelet Volume 8.2 fL (7.4-10.4); Platelet Count 312 thou/uL (130-400); RBC Distribution Width 15.3 % (11.5-14.5); Red Blood Cell (RBC) Count 4.01 mill/uL (4.20-5.40); White Blood Cell (WBC) Count 10.3 thou/uL (4.8-10.8)
[2020-07-16 16:37] LABS: Anion Gap 13 mmol/L (10-20); BUN (Urea Nitrogen) 7 mg/dL (7.0-18.7); Calc. Creatinine Clearance 0 mL/min (70-130); Calcium 8.4 mg/dL (7.8-10.44); Carbon Dioxide 24 mmol/L (22-29); Chloride 104 mmol/L (98-107); Estimated GFR-MDRD Greater than 90; Glucose 99 mg/dL (70-105); Potassium 3.6 mmol/L (3.5-5.1); Sodium 137 mmol/L (136-145)
[2020-07-17 12:14] LABS: SARS-CoV-2 MS2 Positive; SARS-CoV-2 N Gene Negative; SARS-CoV-2 S Gene Negative; SARS-CoV-2 by NAA Not Detected (NotDetected); SARS-CoV-2 orf1ab Negative
== END 2020-07-16 17:40 | disposition home or self-care (01) ==
LOC: ERS 15:20
DX: J45.901 Unspecified asthma with (acute) exacerbation (principal); J18.9 Pneumonia, unspecified organism; Z20.828 Contact with and (suspected) exposure to other viral communicable diseases; Z79.899 Other long term (current) drug therapy
CPT/HCPCS: 36415; 71045; 80048; 84484; 85025; 87635; 93005; J7512; U0003

== ENCOUNTER 2021-02-09 11:54 | Emergency (ER) | payer OTHER ==
[2021-02-09] MEDS ORDERED: Acetaminophen 500 MG TAB ONE (12:20)
[2021-02-09] MEDS ORDERED: Ketorolac Tromethamine 30 MG/ML VIAL ONE (13:33)
[2021-02-09 14:18] LABS: #Eosinphils 0.6 thou/uL (0.0-0.7); #Lymphocytes 0.5 thou/uL (1.20-3.40); #Monocytes 0.5 thou/uL (0.11-0.59); %Basophils 0.1 % (0.0-1.0); %Eosinophils 10.9 % (0.0-10.0); %Lymphocytes 9.4 % (21.0-51.0); %Monocytes 9.3 % (0.0-10.0); %Neutrophils 70.3 % (42.0-75.0); Hemoglobin 9.1 g/dL (12.0-16.0); Mean Corpuscular HGB CONC 31.5 g/dL (32.0-36.0); Mean Corpuscular Hemoglobin 24.9 pg (27.0-31.0); Platelet Count 256 thou/uL (130-400); RBC Distribution Width 15.3 % (11.5-14.5); Red Blood Cell (RBC) Count 3.65 mill/uL (4.20-5.40); White Blood Cell (WBC) Count 5.6 thou/uL (4.8-10.8)
[2021-02-09 14:30] LABS: BHCG - Serum Negative (NEGATIVE); Pregs Control Background? CLEAR/WHITE (CLR/WHITE); Pregs Control Bar Appear? YES (CONTROL BAR)
[2021-02-09 14:40] LABS: ALT (SGPT) 9 U/L (8-55); AST (SGOT) 13 U/L (5-34); Albumin 3.7 g/dL (3.5-5.0); Alkaline Phosphatase 62 U/L (40-110); Anion Gap 11 mmol/L (10-20); BUN (Urea Nitrogen) 5 mg/dL (7.0-18.7); Bilirubin, Total 0.3 mg/dL (0.2-1.2); Calc. Creatinine Clearance 0 mL/min (70-130); Calcium 8.8 mg/dL (7.8-10.44); Carbon Dioxide 22 mmol/L (22-29); Chloride 107 mmol/L (98-107); Globulin 3.2 g/dL (2.4-3.5); Glucose 96 mg/dL (70-105); Magnesium 1.7 mg/dL (1.6-2.6); Potassium 3.5 mmol/L (3.5-5.1); Protein, Total 6.9 g/dL (6.0-8.3); Sodium 136 mmol/L (136-145)
[2021-02-09 21:35] LABS: SARS-CoV-2 PCR by NAA DETECTED (NotDetected)
== END 2021-02-09 15:27 | disposition home or self-care (01) ==
LOC: ERS 11:54
DX: U07.1 COVID-19 (principal); J45.909 Unspecified asthma, uncomplicated
CPT/HCPCS: 36415; 71045; 80053; 83605; 83735; 84703; 85025; 96372; J1885; U0003; U0005

== ENCOUNTER 2021-02-12 09:27 | Emergency (ER) | payer OTHER ==
[2021-02-12] MEDS ORDERED: Iopamidol-370 76% 500 ML 1 ML ONE (09:37)
[2021-02-12] MEDS ORDERED: Ketorolac Tromethamine 30 MG/ML VIAL ONE (09:57)
[2021-02-12 10:12] LABS: #Basophils 0.1 thou/uL (0.0-0.2); #Lymphocytes 0.9 thou/uL (1.20-3.40); #Monocytes 0.3 thou/uL (0.11-0.59); %Basophils 2.3 % (0.0-1.0); %Eosinophils 0.2 % (0.0-10.0); %Lymphocytes 27.7 % (21.0-51.0); %Monocytes 7.7 % (0.0-10.0); %Neutrophils 62.1 % (42.0-75.0); Hemoglobin 8.9 g/dL (12.0-16.0); Mean Corpuscular HGB CONC 31.4 g/dL (32.0-36.0); Mean Corpuscular Hemoglobin 24.9 pg (27.0-31.0); Mean Corpuscular Volume 79.2 fL (78.0-98.0); Mean Platelet Volume 9.2 fL (7.4-10.4); Platelet Count 204 thou/uL (130-400); RBC Distribution Width 15.3 % (11.5-14.5); Red Blood Cell (RBC) Count 3.57 mill/uL (4.20-5.40); White Blood Cell (WBC) Count 3.3 thou/uL (4.8-10.8)
[2021-02-12 10:26] LABS: INR-International Normal Ratio 1.1; PTT 34.6 sec (22.9-36.1); Prothrombin Time 14.5 sec (12.0-14.7)
[2021-02-12 10:27] LABS: D-Dimer Test 0.62 *mcg/mL (0.27-0.43)
[2021-02-12 10:34] LABS: ALT (SGPT) 13 U/L (8-55); AST (SGOT) 23 U/L (5-34); Albumin 3.5 g/dL (3.5-5.0); Alkaline Phosphatase 41 U/L (40-110); Anion Gap 11 mmol/L (10-20); BUN (Urea Nitrogen) 5 mg/dL (7.0-18.7); Bilirubin, Total 0.2 mg/dL (0.2-1.2); Calc. Creatinine Clearance 0 mL/min (70-130); Carbon Dioxide 22 mmol/L (22-29); Chloride 103 mmol/L (98-107); Globulin 3.1 g/dL (2.4-3.5); Glucose 106 mg/dL (70-105); Protein, Total 6.6 g/dL (6.0-8.3); Sodium 133 mmol/L (136-145)
[2021-02-12 11:02] LABS: Potassium 2.8 mmol/L (3.5-5.1)
[2021-02-12] MEDS ORDERED: Potassium Chloride 20 MEQ TAB ONE (12:18)
[2021-02-12] MEDS ORDERED: Cefepime 2 GM VIAL ONE (12:29)
[2021-02-12] MEDS ORDERED: cefTRIAXone\\ROCEPHIN 2 GM VIAL ONE (12:57)
[2021-02-12 13:19] LABS: Bilirubin Negative (Negative); Blood, Urine Large (Negative); Glucose, Urine (Dipstick) Negative (Negative); Ketone, Urine Negative (Negative); Leukocyte Negative (Negative); Nitrite Negative (Negative); Protein, Urine (Dipstick) Negative (Neg-Trace); Urobilinogen 0.2 mg/dL (Less than 2)
[2021-02-12 13:20] LABS: Clarity Hazy (Clear)
[2021-02-12 13:21] LABS: Specific Gravity, Urine 1.006 (1.002-1.036)
[2021-02-12 13:22] LABS: Bacteria/HPF None Seen HPF (None Seen); Squamous Epithelial None Seen HPF (0-3); WBC/HPF 0-3 HPF (0-3)
[2021-02-12] MEDS ORDERED: Azithromycin 500 MG VIAL ONE (13:40)
[2021-02-12] MEDS ORDERED: Dexamethasone 10 MG/ML VIAL ONE (13:49)
[2021-02-12] MEDS ORDERED: Ondansetron PF 4 MG/2 ML Vial ONE (14:19)
== END 2021-02-12 15:40 | disposition home or self-care (01) ==
LOC: ERS 09:27
DX: U07.1 COVID-19 (principal); J12.82 Pneumonia due to coronavirus disease 2019; R11.2 Nausea with vomiting, unspecified
CPT/HCPCS: 36415; 71045; 71275; 80053; 81003; 81015; 83605; 83880; 84484; 85025; 85379; 85610; 85730; 87040; 87086; 93005; 94760; 96365; 96367; 96375; J0456; J0692; J0696; J1100; J1885; J2405; Q9967

== ENCOUNTER 2021-02-15 06:41 | Observation (INO) | payer OTHER ==
[2021-02-15] MEDS ORDERED: Ibuprofen 200 MG TAB ONE (07:24)
[2021-02-15 08:32] LABS: Anion Gap 14 mmol/L (10-20); BUN (Urea Nitrogen) 4 mg/dL (7.0-18.7); Calc. Creatinine Clearance 0 mL/min (70-130); Calcium 7.7 mg/dL (7.8-10.44); Carbon Dioxide 25 mmol/L (22-29); Chloride 100 mmol/L (98-107); Glucose 93 mg/dL (70-105); Sodium 136 mmol/L (136-145)
[2021-02-15 08:36] LABS: Potassium 2.7 mmol/L (3.5-5.1)
[2021-02-15] MEDS ORDERED: Potassium Chloride 20 MEQ TAB ONE (09:19)
[2021-02-15 09:46] LABS: #Lymphocytes 1.5 thou/uL (1.20-3.40); #Monocytes 0.3 thou/uL (0.11-0.59); #Neutrophils 5.9 thou/uL (1.40-6.50); %Basophils 0.1 % (0.0-1.0); %Lymphocytes 19.4 % (21.0-51.0); %Monocytes 3.7 % (0.0-10.0); %Neutrophils 76.7 % (42.0-75.0); Hemoglobin 8.4 g/dL (12.0-16.0); Mean Corpuscular HGB CONC 31.4 g/dL (32.0-36.0); Mean Corpuscular Hemoglobin 24.8 pg (27.0-31.0); Mean Platelet Volume 9.2 fL (7.4-10.4); Platelet Count 207 thou/uL (130-400); RBC Distribution Width 15.2 % (11.5-14.5); Red Blood Cell (RBC) Count 3.38 mill/uL (4.20-5.40); White Blood Cell (WBC) Count 7.7 thou/uL (4.8-10.8)
[2021-02-15] MEDS ORDERED: Albuterol Sulfate 2.5 mg/3 ml Neb NEB PRN (10:27)
[2021-02-15] MEDS ORDERED: Albuterol Sulfate 2.5 mg/3 ml Neb NEB SCH (10:30)
[2021-02-15] MEDS ORDERED: Potassium Chloride 20 MEQ TAB PO SCH (10:30)
[2021-02-15] MEDS ORDERED: predniSONE 20 MG TAB PO SCH (10:30)
[2021-02-15 11:06] LABS: CRP (Inflammatory) 4.94 mg/dL (= or < 0.5)
[2021-02-15 11:31] VITALS: BMI 29.8
[2021-02-15] MEDS ORDERED: Iron Sucrose Complex 100 MG in Sodium Chloride 0.9% 100 ML IVPB SCH (16:00)
[2021-02-15] MEDS ORDERED: Iron, Sodium Ferric Gluconate 125 MG in Sodium Chloride 0.9% 100 ML IVPB SCH (16:15)
[2021-02-15] MEDS: Potassium Chloride 20 MEQ TAB PO SCH (16:34)
[2021-02-15] MEDS: Ferrous Sulfate 325 MG TAB PO SCH (16:34)
[2021-02-15 16:42] LABS: Anion Gap 15 mmol/L (10-20); BUN (Urea Nitrogen) 5 mg/dL (7.0-18.7); Calc. Creatinine Clearance 109 mL/min (70-130); Calcium 8.2 mg/dL (7.8-10.44); Carbon Dioxide 25 mmol/L (22-29); Chloride 106 mmol/L (98-107); Glucose 127 mg/dL (70-105); Potassium 4.4 mmol/L (3.5-5.1); Sodium 142 mmol/L (136-145)
[2021-02-15] MEDS: Albuterol 200 PUFF (6.7GM INHALER) INH PRN ×2 (17:32→20:59)
[2021-02-15] MEDS: Mometasone 100 MCG/Formoterol 5 MCG 120 PUFF INHALER INH SCH (17:32)
[2021-02-15] MEDS: hydrOXYzine 25 MG TAB PO PRN (17:54)
[2021-02-15] MEDS: Montelukast Sodium 10 mg Tablet PO SCH (21:00)
[2021-02-15] MEDS: Benzonatate 100 MG CAP PO SCH (21:00)
[2021-02-15] MEDS: Acetaminophen 325 MG TAB PO PRN (21:23)
[2021-02-15] MEDS: Dextromethorphan Polistirex 30 MG/5 ML (89 ML BOTTLE) PO PRN (22:28)
[2021-02-16] MEDS: Albuterol 200 PUFF (6.7GM INHALER) INH PRN ×3 (00:30→08:44)
[2021-02-16] MEDS: hydrOXYzine 25 MG TAB PO PRN (02:47)
[2021-02-16] MEDS: Cepastat Lozenges 1 LOZ PO PRN (03:20)
[2021-02-16] MEDS: Acetaminophen 325 MG TAB PO PRN (05:00)
[2021-02-16] MEDS: Mometasone 100 MCG/Formoterol 5 MCG 120 PUFF INHALER INH SCH ×2 (06:21→18:24)
[2021-02-16 06:36] LABS: #Lymphocytes 0.8 thou/uL (1.20-3.40); #Monocytes 0.2 thou/uL (0.11-0.59); #Neutrophils 7.9 thou/uL (1.40-6.50); %Basophils 0.4 % (0.0-1.0); %Eosinophils 0.1 % (0.0-10.0); %Lymphocytes 8.9 % (21.0-51.0); %Monocytes 2.6 % (0.0-10.0); Hemoglobin 8.1 g/dL (12.0-16.0); Mean Corpuscular HGB CONC 31.2 g/dL (32.0-36.0); Mean Corpuscular Hemoglobin 24.8 pg (27.0-31.0); Mean Corpuscular Volume 79.5 fL (78.0-98.0); Mean Platelet Volume 9.4 fL (7.4-10.4); Platelet Count 202 thou/uL (130-400); RBC Distribution Width 15.3 % (11.5-14.5); Red Blood Cell (RBC) Count 3.28 mill/uL (4.20-5.40); White Blood Cell (WBC) Count 8.9 thou/uL (4.8-10.8)
[2021-02-16 07:00] LABS: Anion Gap 10 mmol/L (10-20); BUN (Urea Nitrogen) 6 mg/dL (7.0-18.7); Calc. Creatinine Clearance 121 mL/min (70-130); Calcium 8.3 mg/dL (7.8-10.44); Carbon Dioxide 25 mmol/L (22-29); Chloride 105 mmol/L (98-107); Glucose 92 mg/dL (70-105); Potassium 3.8 mmol/L (3.5-5.1); Sodium 136 mmol/L (136-145)
[2021-02-16] MEDS: Potassium Chloride 20 MEQ TAB PO SCH ×2 (08:43→17:13)
[2021-02-16] MEDS: Ibuprofen 600 MG TAB PO PRN (08:43)
[2021-02-16] MEDS: Montelukast Sodium 10 mg Tablet PO SCH ×2 (08:43→19:59)
[2021-02-16] MEDS: Benzonatate 100 MG CAP PO SCH ×3 (08:44→19:59)
[2021-02-16] MEDS: Enoxaparin Sodium 40 MG/0.4 ML SYRINGE SC SCH (08:44)
[2021-02-16] MEDS: Ferrous Sulfate 325 MG TAB PO SCH ×2 (08:44→17:12)
[2021-02-16] MEDS: predniSONE 20 MG TAB PO SCH (08:44)
[2021-02-16] MEDS: Albuterol 200 PUFF (6.7GM INHALER) INH SCH ×4 (10:32→22:30)
[2021-02-16] MEDS ORDERED: Lidocaine 5% Patch TD PRN (15:47)
[2021-02-16] MEDS ORDERED: Transdermal Patch Removal TOP PRN (16:00)
[2021-02-16] MEDS: Dextromethorphan Polistirex 30 MG/5 ML (89 ML BOTTLE) PO PRN (22:30)
[2021-02-17] MEDS: Albuterol 200 PUFF (6.7GM INHALER) INH SCH ×4 (01:58→14:50)
[2021-02-17] MEDS: Cepastat Lozenges 1 LOZ PO PRN (02:00)
[2021-02-17] MEDS: Acetaminophen 325 MG TAB PO PRN (02:15)
[2021-02-17] MEDS: Ibuprofen 600 MG TAB PO PRN (03:04)
[2021-02-17] MEDS: Mometasone 100 MCG/Formoterol 5 MCG 120 PUFF INHALER INH SCH (06:04)
[2021-02-17 06:40] LABS: #Lymphocytes 1.3 thou/uL (1.20-3.40); #Monocytes 0.3 thou/uL (0.11-0.59); #Neutrophils 8.4 thou/uL (1.40-6.50); %Lymphocytes 13.3 % (21.0-51.0); %Monocytes 2.8 % (0.0-10.0); %Neutrophils 83.9 % (42.0-75.0); Hemoglobin 8.3 g/dL (12.0-16.0); Mean Corpuscular HGB CONC 30.8 g/dL (32.0-36.0); Mean Corpuscular Hemoglobin 24.8 pg (27.0-31.0); Mean Corpuscular Volume 80.4 fL (78.0-98.0); Mean Platelet Volume 9.8 fL (7.4-10.4); Platelet Count 242 thou/uL (130-400); RBC Distribution Width 15.4 % (11.5-14.5); Red Blood Cell (RBC) Count 3.33 mill/uL (4.20-5.40)
[2021-02-17 06:48] LABS: Anion Gap 11 mmol/L (10-20); BUN (Urea Nitrogen) 10 mg/dL (7.0-18.7); Calc. Creatinine Clearance 123 mL/min (70-130); Calcium 8.7 mg/dL (7.8-10.44); Carbon Dioxide 26 mmol/L (22-29); Chloride 104 mmol/L (98-107); Glucose 94 mg/dL (70-105); Potassium 3.7 mmol/L (3.5-5.1); Sodium 137 mmol/L (136-145)
[2021-02-17] MEDS: Enoxaparin Sodium 40 MG/0.4 ML SYRINGE SC SCH (08:33)
[2021-02-17] MEDS: Benzonatate 100 MG CAP PO SCH ×2 (08:33→14:50)
[2021-02-17] MEDS: predniSONE 20 MG TAB PO SCH (08:33)
[2021-02-17] MEDS: Montelukast Sodium 10 mg Tablet PO SCH (08:33)
[2021-02-17] MEDS: Ferrous Sulfate 325 MG TAB PO SCH (08:33)
[2021-02-17] MEDS: Potassium Chloride 20 MEQ TAB PO SCH (08:33)
[2021-02-17] MEDS: Dextromethorphan Polistirex 30 MG/5 ML (89 ML BOTTLE) PO PRN (11:50)
[2021-02-17] MEDS: hydrOXYzine 25 MG TAB PO PRN (14:50)
[2021-02-17 18:07] VITALS: BP 120/81; TEMP 99
== END 2021-02-17 18:50 | disposition home or self-care (01) ==
LOC: ERS 06:41 → T4-A 09:52
PROVIDERS: ADMIT Family Medicine; ATTEND Family Medicine
DX: U07.1 COVID-19 (principal); J45.901 Unspecified asthma with (acute) exacerbation; J12.82 Pneumonia due to coronavirus disease 2019; M94.0 Chondrocostal junction syndrome [Tietze]; E87.6 Hypokalemia; N93.9 Abnormal uterine and vaginal bleeding, unspecified; D64.9 Anemia, unspecified; Z79.899 Other long term (current) drug therapy; Z88.8 Allergy status to other drugs, medicaments and biological substances; Z91.048 Other nonmedicinal substance allergy status
CPT/HCPCS: 36415; 36416; 71045; 80048; 82728; 83540; 83550; 84145; 84466; 85025; 86140; 93005; 96372; 96374; G0378; J1650; J2916; J3490; J7512

== ENCOUNTER 2024-02-17 08:23 | Emergency (ER) | payer OTHER ==
[2024-02-17] MEDS ORDERED: Aspirin Chewable 81 MG TAB ONE (09:31)
[2024-02-17] MEDS ORDERED: Ketorolac Tromethamine 30 MG (1 mL) VIAL ONE (09:31)
[2024-02-17] MEDS ORDERED: Albuterol 2.5 MG (0.5 mL) NEB ONE (09:35)
[2024-02-17] MEDS ORDERED: Dexamethasone 10 MG/ML VIAL ONE (09:35)
[2024-02-17] MEDS ORDERED: Ipratropium Bromide 2.5 ml Neb ONE (09:36)
[2024-02-17 10:07] LABS: #Basophils 0.08 10x3/uL (0.0-0.2); %Basophils 0.9 % (0.0-1.0); %Eosinophils 14.3 % (0.0-10.0); %Lymphocytes 20.1 % (21.0-51.0); %Monocytes 5.3 % (0.0-10.0); Hematocrit 41.4 % (36.0-47.0); Hemoglobin 13.6 g/dL (12.0-16.0); Mean Corpuscular HGB CONC 32.9 g/dL (32.0-36.0); Mean Corpuscular Hemoglobin 28.8 pg (27.0-31.0); Mean Corpuscular Volume 87.7 fL (78.0-98.0); Mean Platelet Volume 10.6 fL (7.4-10.4); Platelet Count 255 10x3/uL (130-400); RBC Distribution Width 13.3 % (11.5-14.5); Red Blood Cell (RBC) Count 4.72 mill/uL (4.20-5.40)
[2024-02-17 10:35] LABS: ALT (SGPT) 10 U/L (8-55); AST (SGOT) 29 U/L (5-34); Albumin 3.3 g/dL (3.5-5.0); Alkaline Phosphatase 61 U/L (40-110); Anion Gap 14 mmol/L (10-20); BUN (Urea Nitrogen) 9 mg/dL (7.0-18.7); Bilirubin, Total 0.6 mg/dL (0.2-1.2); Calc. Creatinine Clearance 0 mL/min (70-130); Carbon Dioxide 22 mmol/L (22-29); Chloride 108 mmol/L (98-107); Estimated GFR 97; Globulin 3.9 g/dL (2.4-3.5); Glucose 95 mg/dL (70-105); Lipase 20 U/L (8-78); Potassium 4.8 mmol/L (3.5-5.1); Protein, Total 7.2 g/dL (6.0-8.3); Sodium 139 mmol/L (136-145); Troponin I Less than 0.010 ng/mL (< 0.028)
[2024-02-17] MEDS ORDERED: Iopamidol-370 76% 500 ML MDV (1 ML CHARGE) ONE (10:48)
[2024-02-17 14:03] LABS: Troponin I Less than 0.010 ng/mL (< 0.028)
== END 2024-02-17 17:17 | disposition home or self-care (01) ==
LOC: ERS 08:23
DX: J45.901 Unspecified asthma with (acute) exacerbation (principal)
CPT/HCPCS: 71045; 71275; 80053; 83690; 83880; 84484; 85025; 85379; 93005; 94640; 96374; J1100; J1885; J7611; Q9967

== ENCOUNTER 2024-02-22 16:53 | Emergency (ER) | payer OTHER | END 2024-02-22 17:30 | disposition home or self-care (01) | LOC: ERS 16:53 | DX: J18.9 Pneumonia, unspecified organism (principal); J45.909 Unspecified asthma, uncomplicated; Z79.899 Other long term (current) drug therapy | CPT/HCPCS: 99284 ==

== ENCOUNTER 2024-06-17 09:58 | Emergency (ER) | payer OTHER ==
[2024-06-17 10:59] LABS: #Basophils 0.09 10x3/uL (0.0-0.2); %Basophils 1.1 % (0.0-1.0); %Eosinophils 12.9 % (0.0-10.0); %Lymphocytes 24.3 % (21.0-51.0); %Monocytes 4.7 % (0.0-10.0); %Neutrophils 56.5 % (42.0-75.0); Hematocrit 42.1 % (36.0-47.0); Hemoglobin 13.6 g/dL (12.0-16.0); Mean Corpuscular HGB CONC 32.3 g/dL (32.0-36.0); Mean Corpuscular Hemoglobin 29.5 pg (27.0-31.0); Mean Corpuscular Volume 91.3 fL (78.0-98.0); Mean Platelet Volume 10.8 fL (7.4-10.4); Platelet Count 245 10x3/uL (130-400); RBC Distribution Width 13.1 % (11.5-14.5); Red Blood Cell (RBC) Count 4.61 mill/uL (4.20-5.40)
[2024-06-17 11:10] LABS: BHCG - Serum Negative (NEGATIVE); Pregs Control Background? CLEAR/WHITE (CLR/WHITE); Pregs Control Bar Appear? YES (CONTROL BAR)
[2024-06-17 11:20] LABS: ALT (SGPT) 13 U/L (8-55); AST (SGOT) 20 U/L (5-34); Albumin 3.7 g/dL (3.5-5.0); Alkaline Phosphatase 61 U/L (40-110); Anion Gap 12 mmol/L (10-20); BUN (Urea Nitrogen) 12 mg/dL (7.0-18.7); Bilirubin, Total 0.5 mg/dL (0.2-1.2); Calc. Creatinine Clearance 0 mL/min (70-130); Calcium 9.2 mg/dL (7.8-10.44); Carbon Dioxide 27 mmol/L (22-29); Chloride 105 mmol/L (98-107); Estimated GFR 82; Globulin 3.2 g/dL (2.4-3.5); Glucose 87 mg/dL (70-105); Potassium 4.2 mmol/L (3.5-5.1); Protein, Total 6.9 g/dL (6.0-8.3); Sodium 140 mmol/L (136-145)
[2024-06-17 11:25] LABS: Troponin I Less than 0.010 ng/mL (< 0.028)
[2024-06-17] MEDS ORDERED: Acetaminophen 500 MG TAB ONE (12:00)
== END 2024-06-17 12:05 | disposition home or self-care (01) ==
LOC: ERS 09:58
DX: R07.9 Chest pain, unspecified (principal); J39.9 Disease of upper respiratory tract, unspecified; J45.909 Unspecified asthma, uncomplicated; Z55.6 Problems related to health literacy
CPT/HCPCS: 71045; 80053; 84484; 84703; 85025; 93005

== ENCOUNTER 2024-07-19 06:11 | Emergency (ER) | payer OTHER ==
[2024-07-19] MEDS ORDERED: predniSONE 20 MG TAB ONE (06:32)
[2024-07-19] MEDS ORDERED: Famotidine 20 MG TAB ONE (06:32)
[2024-07-19] MEDS ORDERED: diphenhydrAMINE 25 MG CAP ONE (06:33)
== END 2024-07-19 06:38 | disposition home or self-care (01) ==
LOC: ERS 06:11
DX: T78.40XA Allergy, unspecified, initial encounter (principal)
CPT/HCPCS: 99282

== ENCOUNTER 2024-09-26 15:25 | Emergency (ER) | payer OTHER | END 2024-09-26 19:05 | disposition home or self-care (01) | LOC: ERS 15:25 | DX: J45.901 Unspecified asthma with (acute) exacerbation (principal) | CPT/HCPCS: 71046; 87428; 94640 ==

== ENCOUNTER 2024-10-20 08:23 | Observation (INO) | payer OTHER ==
[2024-10-20] MEDS ORDERED: Albuterol 2.5 MG (3 mL) NEB ONE (08:51)
[2024-10-20] MEDS ORDERED: Albuterol 2.5 MG (0.5 mL) NEB ONE (08:51)
[2024-10-20] MEDS ORDERED: Ipratropium/Albuterol 3 ML NEB ONE ×2 (08:51→10:33)
[2024-10-20] MEDS ORDERED: Magnesium 2 GM/50 ML BAG (IN WATER) ONE (09:00)
[2024-10-20] MEDS ORDERED: methylPREDNISolone Sod Succ/PF 125 MG/2 ML VIAL ONE (09:00)
[2024-10-20 09:27] LABS: #Basophils Less than 0.03 10x3/uL (0.0-0.2); #Eosinophils Less than 0.03 10x3/uL (0.0-0.7); %Basophils 0.2 % (0.0-1.0); %Lymphocytes 27.3 % (21.0-51.0); %Monocytes 5.3 % (0.0-10.0); %Neutrophils 66.8 % (42.0-75.0); Hematocrit 39.7 % (36.0-47.0); Hemoglobin 13.1 g/dL (12.0-16.0); Mean Corpuscular Volume 87.8 fL (78.0-98.0); Mean Platelet Volume 10.4 fL (7.4-10.4); Platelet Count 243 10x3/uL (130-400); RBC Distribution Width 14.1 % (11.5-14.5); Red Blood Cell (RBC) Count 4.52 mill/uL (4.20-5.40)
[2024-10-20 09:37] LABS: BHCG - Serum Negative (NEGATIVE); Pregs Control Background? CLEAR/WHITE (CLR/WHITE); Pregs Control Bar Appear? YES (CONTROL BAR)
[2024-10-20 09:46] LABS: Troponin I 0.015 ng/mL (< 0.028)
[2024-10-20 10:21] LABS: Albumin 3.5 g/dL (3.1-4.5); Chloride 106 mmol/L (98-107); Potassium 3.4 mmol/L (3.5-5.1); Sodium 138 mmol/L (136-145)
[2024-10-20 10:22] LABS: Calcium 8.8 mg/dL (7.8-10.44); Glucose 93 mg/dL (70-105)
[2024-10-20 10:23] LABS: Globulin 3.5 g/dL (2.4-3.5)
[2024-10-20 10:24] LABS: Anion Gap 12 mmol/L (10-20); Carbon Dioxide 23 mmol/L (22-29)
[2024-10-20 10:25] LABS: Alkaline Phosphatase 57 U/L (40-110); Bilirubin, Total 0.8 mg/dL (0.3-1.2)
[2024-10-20 10:26] LABS: BUN (Urea Nitrogen) 10 mg/dL (7.0-18.7); Calc. Creatinine Clearance 0 mL/min (70-130); Estimated GFR 83
[2024-10-20 10:28] LABS: ALT (SGPT) 17 U/L (Less than 34); AST (SGOT) 17 U/L (11-34)
[2024-10-20] MEDS ORDERED: Benzonatate 100 MG CAP ONE (10:33)
[2024-10-20] MEDS ORDERED: Acetaminophen 325 MG TAB PO PRN (11:25)
[2024-10-20] MEDS ORDERED: Ondansetron ODT 4 MG TAB PO PRN (11:25)
[2024-10-20] MEDS ORDERED: Ondansetron PF 4 MG/2 ML Vial IVP PRN (11:25)
[2024-10-20 12:41] VITALS: BMI 29.9
[2024-10-20] MEDS: Promethazine HCl 6.25 MG/5 ML Syrup PO PRN (13:14)
[2024-10-20] MEDS: Ipratropium/Albuterol 3 ML NEB NEB PRN (13:23)
[2024-10-20] MEDS: Ipratropium/Albuterol 3 ML NEB NEB SCH (14:29)
[2024-10-20] MEDS: Loratadine 10 MG TAB PO SCH (15:26)
[2024-10-20] MEDS: Lactated Ringer's 1,000 ML IV SCH (17:50)
[2024-10-20] MEDS: Mometasone 100 MCG/Formoterol 5 MCG 120 PUFF INHALER INH SCH (19:02)
[2024-10-20 21:05] LABS: Lactic Acid 3.59 mmol/L (0.50-2.20)
[2024-10-21 06:20] LABS: #Basophils Less than 0.03 10x3/uL (0.0-0.2); #Eosinophils Less than 0.03 10x3/uL (0.0-0.7); %Basophils 0.1 % (0.0-1.0); %Lymphocytes 6.9 % (21.0-51.0); %Neutrophils 88.3 % (42.0-75.0); Hematocrit 38.2 % (36.0-47.0); Hemoglobin 12.3 g/dL (12.0-16.0); Mean Corpuscular HGB CONC 32.2 g/dL (32.0-36.0); Mean Corpuscular Volume 90.1 fL (78.0-98.0); Mean Platelet Volume 10.3 fL (7.4-10.4); Platelet Count 251 10x3/uL (130-400); RBC Distribution Width 14.4 % (11.5-14.5); Red Blood Cell (RBC) Count 4.24 mill/uL (4.20-5.40)
[2024-10-21 06:35] LABS: Anion Gap 13 mmol/L (10-20); BUN (Urea Nitrogen) 6 mg/dL (7.0-18.7); Calc. Creatinine Clearance 120 mL/min (70-130); Calcium 8.8 mg/dL (7.8-10.44); Carbon Dioxide 22 mmol/L (22-29); Chloride 108 mmol/L (98-107); Estimated GFR 109; Glucose 122 mg/dL (70-105); Potassium 3.7 mmol/L (3.5-5.1); Sodium 139 mmol/L (136-145)
[2024-10-21] MEDS ORDERED: predniSONE 20 MG TAB PO SCH (08:00)
[2024-10-21] MEDS: FLU (Fluarix Triv) TS24-25(6MOS UP)/PF 45 MCG/0.5 ML Syringe IM ONE (08:30)
[2024-10-21] MEDS: predniSONE 20 MG TAB PO SCH (09:04)
[2024-10-21] MEDS: Enoxaparin 40 MG (0.4 mL) SYRINGE SC SCH (09:05)
[2024-10-21] MEDS: Loratadine 10 MG TAB PO SCH (09:05)
[2024-10-21] MEDS: Benzonatate 100 MG CAP PO PRN (09:05)
[2024-10-21] MEDS ORDERED: Sodium Chloride 0.65% Nasal 44 ML BOT EA NARE PRN (10:43)
[2024-10-21] MEDS: Ipratropium/Albuterol 3 ML NEB NEB PRN (17:47)
[2024-10-21] MEDS: Ipratropium/Albuterol 3 ML NEB NEB SCH (19:01)
[2024-10-21] MEDS: QUEtiapine 25 MG TAB PO SCH (20:05)
[2024-10-22 05:24] LABS: #Eosinophils Less than 0.03 10x3/uL (0.0-0.7); Mean Platelet Volume 10.5 fL (7.4-10.4); RBC Distribution Width 14.6 % (11.5-14.5)
[2024-10-22 05:34] LABS: Anion Gap 14 mmol/L (10-20); BUN (Urea Nitrogen) 5 mg/dL (7.0-18.7); Calc. Creatinine Clearance 124 mL/min (70-130); Carbon Dioxide 20 mmol/L (22-29); Chloride 109 mmol/L (98-107); Estimated GFR 110; Glucose 108 mg/dL (70-105); Sodium 140 mmol/L (136-145)
[2024-10-22 05:41] LABS: #Basophils 0.03 10x3/uL (0.0-0.2); %Basophils 0.2 % (0.0-1.0); %Lymphocytes 21.1 % (21.0-51.0); %Monocytes 6.3 % (0.0-10.0); %Neutrophils 71.4 % (42.0-75.0); Hematocrit 39.2 % (36.0-47.0); Hemoglobin 12.3 g/dL (12.0-16.0); Mean Corpuscular HGB CONC 31.4 g/dL (32.0-36.0); Mean Corpuscular Hemoglobin 29.1 pg (27.0-31.0); Mean Corpuscular Volume 92.9 fL (78.0-98.0); Platelet Count 254 10x3/uL (130-400); Red Blood Cell (RBC) Count 4.22 mill/uL (4.20-5.40)
[2024-10-22] MEDS: Potassium Chloride 20 MEQ TAB PO SCH (07:52)
[2024-10-22] MEDS: Fluticasone Propionate Nasal Spray 16 gm Bottle NASAL SCH (08:01)
[2024-10-22 12:50] VITALS: BP 149/93; TEMP 98
== END 2024-10-22 12:53 | disposition home or self-care (01) ==
LOC: ERS 08:23 → MSONC 11:06
PROVIDERS: ADMIT Internal Medicine; ATTEND Internal Medicine
DX: J45.901 Unspecified asthma with (acute) exacerbation (principal); E87.20 Acidosis, unspecified; D72.829 Elevated white blood cell count, unspecified; G47.00 Insomnia, unspecified; K21.9 Gastro-esophageal reflux disease without esophagitis; J32.9 Chronic sinusitis, unspecified; D25.9 Leiomyoma of uterus, unspecified; Z91.040 Latex allergy status; Z88.2 Allergy status to sulfonamides; Z79.51 Long term (current) use of inhaled steroids; Z79.899 Other long term (current) drug therapy
CPT/HCPCS: 36415; 36416; 71045; 80048; 80053; 83605; 84145; 84484; 84703; 85025; 87040; 87428; 93005; 94640; 94664; 94760; 96374; 96375; G0378; J2919; J3475; J7120; J7512; J7611; J7620

== ENCOUNTER 2024-10-30 19:07 | Inpatient (IN) | payer MEDICAID ==
[2024-10-30] MEDS ORDERED: methylPREDNISolone Sod Succ/PF 125 MG/2 ML VIAL ONE (19:23)
[2024-10-30] MEDS ORDERED: cefTRIAXone (ROCEPHIN) 2 GM VIAL ONE (19:23)
[2024-10-30] MEDS ORDERED: Magnesium 2 GM/50 ML BAG (IN WATER) ONE (19:23)
[2024-10-30] MEDS ORDERED: Albuterol 2.5 MG (3 mL) NEB ONE (19:25)
[2024-10-30 19:45] LABS: #Basophils Less than 0.03 10x3/uL (0.0-0.2); #Eosinophils Less than 0.03 10x3/uL (0.0-0.7); %Basophils 0.2 % (0.0-1.0); %Lymphocytes 24.8 % (21.0-51.0); %Monocytes 4.3 % (0.0-10.0); Hematocrit 38.6 % (36.0-47.0); Hemoglobin 12.5 g/dL (12.0-16.0); Mean Corpuscular HGB CONC 32.4 g/dL (32.0-36.0); Mean Corpuscular Hemoglobin 28.6 pg (27.0-31.0); Mean Corpuscular Volume 88.3 fL (78.0-98.0); Platelet Count 248 10x3/uL (130-400); Red Blood Cell (RBC) Count 4.37 mill/uL (4.20-5.40)
[2024-10-30] MEDS ORDERED: Ondansetron PF 4 MG/2 ML Vial ONE (19:48)
[2024-10-30] MEDS ORDERED: Ketorolac Tromethamine 30 MG (1 mL) VIAL ONE (19:53)
[2024-10-30 19:54] LABS: BHCG - Serum Negative (NEGATIVE); Pregs Control Background? CLEAR/WHITE (CLR/WHITE); Pregs Control Bar Appear? YES (CONTROL BAR)
[2024-10-30 20:01] LABS: Acetaminophen Less than 10 mcg/mL (Less than 10); Alcohol Less than 10.0 mg/dL (Less than 10); Salicylate Less than 8.0 mg/dL (Less than 8.0)
[2024-10-30 20:02] LABS: ALT (SGPT) 12 U/L (Less than 34); AST (SGOT) 17 U/L (11-34); Albumin 3.3 g/dL (3.1-4.5); Alkaline Phosphatase 62 U/L (40-110); Anion Gap 15 mmol/L (10-20); BUN (Urea Nitrogen) 8 mg/dL (7.0-18.7); Bilirubin, Total 0.3 mg/dL (0.3-1.2); Calc. Creatinine Clearance 0 mL/min (70-130); Calcium 8.9 mg/dL (7.8-10.44); Carbon Dioxide 23 mmol/L (22-29); Chloride 107 mmol/L (98-107); Estimated GFR 104; Glucose 122 mg/dL (70-105); Potassium 3.8 mmol/L (3.5-5.1); Protein, Total 6.3 g/dL (6.0-8.3); Sodium 141 mmol/L (136-145)
[2024-10-30 20:04] LABS: Troponin I 0.012 ng/mL (< 0.028)
[2024-10-30] MEDS ORDERED: Acetaminophen 325 MG TAB PO PRN (20:15)
[2024-10-30] MEDS ORDERED: Ipratropium/Albuterol 3 ML NEB NEB PRN ×2 (20:17→21:00)
[2024-10-30] MEDS ORDERED: Sodium Chloride 0.65% Nasal 44 ML BOT EA NARE PRN (21:10)
[2024-10-30] MEDS ORDERED: Promethazine HCl 6.25 MG/5 ML Syrup PO PRN (21:10)
[2024-10-30] MEDS ORDERED: DUPILUMAB 300 MG/2 ML SC SCH (21:30)
[2024-10-30 22:39] LABS: Amphetamine Not Detected (NotDetected); Barbiturates Screen Not Detected (NotDetected); Benzodiazepine Screen Not Detected (NotDetected); Cocaine Metabolite Screen Not Detected (NotDetected); Methadone Not Detected (NotDetected); Methamphetamine Not Detected (NotDetected); Opiate Screen Not Detected (NotDetected); Oxycodone Screen Not Detected (NotDetected); Phencyclidine (PCP) Not Detected (NotDetected); THC/Cannabinoid Screen Not Detected (NotDetected); Tricyclic Screen Not Detected (NotDetected)
[2024-10-30 23:14] LABS: Actual Bicarbonate (HCO3v) 23.3 mEq/L (22-28); Analyzer IN Cardio ER; Base Excess -2.1 mEq/L (-2.0 to +3.0); Calcium, Ionized (venous) 1.16 mmol/L (1.16-1.32); Chloride (VBG) 102 mmol/L (98-106); Hematocrit-VBG 44 % (36.0-47.0); Hemoglobin (Hb) 15.1 g/dL (11.7-15.5); Potassium (VBG) 4.01 mmol/L (3.70-5.30); Sodium 138 mmol/L (133-146); pH (venous) 7.361 (7.32-7.43)
[2024-10-31 01:11] VITALS: BP 96/83; TEMP 98.5; BMI 29.6
[2024-10-31] MEDS ORDERED: Ipratropium/Albuterol 3 ML NEB ONE (01:18)
[2024-10-31] MEDS: Ipratropium/Albuterol 3 ML NEB IPPB SCH (01:27)
[2024-10-31] MEDS ORDERED: Mometasone 100 MCG/Formoterol 5 MCG 120 PUFF INHALER INH SCH (06:30)
[2024-10-31] MEDS ORDERED: predniSONE 20 MG TAB PO SCH (08:00)
[2024-10-31] MEDS ORDERED: Fluticasone Propionate Nasal Spray 16 gm Bottle NASAL SCH (09:00)
[2024-10-31] MEDS ORDERED: Enoxaparin 40 MG (0.4 mL) SYRINGE SC SCH (09:00)
[2024-10-31] MEDS ORDERED: Loratadine 10 MG TAB PO SCH (09:00)
[2024-10-31] MEDS ORDERED: Pantoprazole 40 MG VIAL IVP SCH (09:00)
== END 2024-10-31 03:55 | disposition left against medical advice (07) | DRG 189 ==
LOC: ERS 19:07 → ERHOLD 20:39
PROVIDERS: ADMIT Family Medicine; ATTEND Family Medicine
PROC: 5A09357 Assistance with Respiratory Ventilation, Less than 24 Consecutive Hours, Continuous Positive Airway Pressure (ICD-10-PCS; principal; 2024-10-30)
DX: J96.01 Acute respiratory failure with hypoxia (principal); J45.901 Unspecified asthma with (acute) exacerbation; K21.9 Gastro-esophageal reflux disease without esophagitis; Z88.8 Allergy status to other drugs, medicaments and biological substances; Z79.899 Other long term (current) drug therapy; Z79.01 Long term (current) use of anticoagulants; Z90.710 Acquired absence of both cervix and uterus; Z53.29 Procedure and treatment not carried out because of patient's decision for other reasons
CPT/HCPCS: 36415; 71045; 80053; 80306; 80307; 82805; 83880; 84484; 84703; 85025; 85379; 93005; 94640; 94760; 96365; 96367; 96375; J0696; J1885; J2405; J2919; J3475; J7611; J7620